=== PATIENT | female | born 1995 | race Caucasian/White ===

== ENCOUNTER → 2017-02-21 | Outpatient (CLI) | payer BC, MEDICAID ==
--- NOTE | 2017-02-21 11:00 | Diagnostic Imaging Report ---
First trimester OB ultrasound. INDICATION: Dating. FINDINGS: There is a normal-appearing single intrauterine . An embryo is seen with cardiac activity at 161 beats per minute. The crown-rump length is at 11 weeks and 5 days. DIMAS is 09/07/17. The ovaries are from obscured by bowel gas. IMPRESSION: Live single intrauterine . Dictated by: Dictated on workstation # [id number]
== END ==
LOC: RAD 10:12
PROVIDERS: ATTEND Family Medicine
DX: Z34.01 Encounter for supervision of normal first pregnancy, first trimester (principal); Z3A.11 11 weeks gestation of pregnancy
CPT/HCPCS: 76801

== ENCOUNTER → 2017-04-30 | Outpatient (CLI) | payer BC, MEDICAID ==
--- NOTE | 2017-04-30 14:10 | Diagnostic Imaging Report ---
INDICATION: survey. TECHNIQUE: Multiple real-time grayscale images were obtained over the gravid uterus. COMPARISON: 02/21/2017. FINDINGS: The heart rate is 146 BPM. The placenta is anterior with no placenta previa. The lateral ventricles are not enlarged. The stomach appears unremarkable. The bladder is seen with two umbilical arteries noted, suggestive of a three-vessel cord. No hydronephrosis or cystic mass at the level of the kidneys is noted. The cord insertion is not well seen. The spine demonstrates no definitive abnormality although the lower spine is not well seen on this exam. The biometrical measurements are as follows: Biparietal 4.9 cm, age 21 weeks 1 days. Head circumference 18.3 cm, age 20 weeks 5 days. Abdominal circumference 15.3 cm, age 20 weeks 4 days. Femur length 3.4 cm, age 20 weeks 4 days. Sonographic estimate age: 20 weeks 6 days. The sonographic age compares to a gestational age of 21 weeks and 3 days based on the DIMAS of 09/07/2017. Sonographic estimated date of delivery: 09/11/17. Estimated Weight: 363 gm (+/- 53 gm). LMP percentile: 11%. heart rate: 146 beats per minute. number: 1 of 1. IMPRESSION: The cord insertion and lower aspect of the spine are not well seen due to position. Reevaluation within 2 weeks is suggested. Dictated by: Dictated on workstation # [id number]
== END ==
LOC: RAD 10:13
PROVIDERS: ATTEND Family Medicine
DX: Z34.02 Encounter for supervision of normal first pregnancy, second trimester (principal); Z36 Encounter for antenatal screening of mother
CPT/HCPCS: 76805

== ENCOUNTER → 2017-07-02 | Outpatient (CLI) | payer MEDICAID ==
[~2017-07-02] MED LIST: ACET325T38 PO; IBUP-1773 PO; PREN-142 PO
--- NOTE | 2017-07-02 13:45 | Diagnostic Imaging Report ---
INDICATION: recheck anatomy. TECHNIQUE: Multiple real-time grayscale images were obtained over the gravid uterus. COMPARISON: None this study was compared to prior exams of 02/21/17 and 04/30/17. FINDINGS: The previous exam of 04/30/17 noted a single live fetus. There were no abnormalities identified but the cord insertion and spine were not well visualized due to position. On this study the fetus is again identified. The fetus is in transverse presentation with head on maternal left. heart motion was noted at a rate of 140 bpm and was recorded. There were no abnormalities visualized. In particular the spine and cord insertion appear to be within normal limits. The placenta is anterior and there is no previa. The amniotic fluid index is 11.3 (normal 8-22 CM). growth parameters were not obtained for this study. IMPRESSION: 1. There is a single live fetus approximately 30 weeks 3 days gestation plus or minus one week. EDC remains September 07, 2017. 2. There were no abnormalities identified. In particular the spine and cord insertion appear to be within normal limits. 3. The growth parameters were not obtained for this study. Biometrical measurements are as follows: Biparietal cm, age weeks days. Head circumference cm, age weeks days. Abdominal circumference cm, age weeks days. Femur length cm, age weeks days. Sonographic estimate age: weeks days. Sonographic estimated date of delivery: . Estimated Weight: gm (+/- gm). LMP percentile: %. heart rate: beats per minute. number: of . IMPRESSION: Dictated by: Dictated on workstation # [id number]
== END ==
LOC: RAD 09:58
PROVIDERS: ATTEND Family Medicine
DX: Z36 Encounter for antenatal screening of mother (principal); Z3A.28 28 weeks gestation of pregnancy
CPT/HCPCS: 76816

== ENCOUNTER 2017-08-28 19:33 | Inpatient (IN) | payer MEDICAID ==
[~2017-08-28] VITALS: Ht 175.3 cm; Wt 98.9 kg
--- OUTSIDE RECORDS SUMMARY | 2017-08-28 19:37 | XMS REPORT | Clinical Summary ---
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 If you do not see the information that you expected, contact Release of Information in the Health Information Management department at [phone] for further assistance in locating additional records.[facility] Allergies Not on File Current Medications Not on file Active Problems Not on file Social History Tobacco Use Types Packs/Day Years Used Date Never Assessed Sex Assigned at Date Recorded Not on file Last Filed Vital Signs Not on file Plan of Treatment Health Maintenance Due Date Last Done Comments PHYSICAL (COMPREHENSIVE) 2004 EXAM HPV VACCINES (1 of 3 - 2008 Female 3 Dose Series) PERTUSSIS VACCINE 2008 TETANUS VACCINE 2014 INFLUENZA VACCINE 08/17/2017 Results Not on filefrom Last 3 Months
--- OUTSIDE RECORDS SUMMARY | 2017-08-28 19:38 | XMS REPORT | Continuity of Care Document ---
Author Author [facility] Organization [facility] Address Unknown Phone Unavailable Allergies Active Description Code Type Severity Reaction Onset Reported/Identified Relationship to Patient Clinical Status Yes Penicillins Drug Allergy N/A N/A 10/19/2013 Medications Problems Date Dx Coded Attending Type Code Diagnosis Diagnosed By 09/12/2008 MARIA M GRIDER DO 300.02 GENERALIZED ANXIETY DISORDER 09/12/2008 MARIA M GRIDER DO K 300.02 GENERALIZED ANXIETY DISORDER 09/12/2008 WILLY PATTERSON PSYD 300.02 GENERALIZED ANXIETY DISORDER 09/12/2008 MARIA M GRIDER DO K 300.02 GENERALIZED ANXIETY DISORDER 09/12/2008 WILLY PATTERSON PSYD 300.02 GENERALIZED ANXIETY DISORDER 09/12/2008 RAJOTTE MARBLE HELPER, AKIL A 300.02 GENERALIZED ANXIETY DISORDER 09/12/2008 RAJOTTE MARBLE HELPER, AKIL A 300.02 GENERALIZED ANXIETY DISORDER 09/12/2008 RAJOTTE MARBLE HELPER, AKIL A 300.02 GENERALIZED ANXIETY DISORDER 09/12/2008 RAJOTTE MARBLE HELPER, AKIL A 300.02 GENERALIZED ANXIETY DISORDER 09/12/2008 RAJOTTE MARBLE HELPER, AKIL A 300.02 GENERALIZED ANXIETY DISORDER 09/12/2008 MARIA M GRIDER DO K 300.02 GENERALIZED ANXIETY DISORDER 12/13/2008 MARIA M GRIDER DO K 300.00 AN ANXIETY UNSPEC 12/13/2008 MARIA M GRIDER DO K 300.4 MO DYSTHYMIC DIS 12/13/2008 THU GRIDER DOA K 300.00 AN ANXIETY UNSPEC 12/13/2008 MARIA M GRIDER DO K 300.4 MO DYSTHYMIC DIS 12/13/2008 WILLY PATTERSON PSYD 300.00 AN ANXIETY UNSPEC 12/13/2008 WILLY PATTERSON PSYD 300.4 MO DYSTHYMIC DIS 12/13/2008 MARIA M GRIDER DO K 300.00 AN ANXIETY UNSPEC 12/13/2008 MARIA M GRIDER DO K 300.4 MO DYSTHYMIC DIS 12/13/2008 WILLY PATTERSON PSYD L 300.00 AN ANXIETY UNSPEC 12/13/2008 WILLY PATTERSON PSYD L 300.4 MO DYSTHYMIC DIS 12/13/2008 RAJOTTE MARBLE HELPER, AKIL A 300.00 AN ANXIETY UNSPEC 12/13/2008 RAJOTTE MARBLE HELPER, AKIL A 300.4 MO DYSTHYMIC DIS 12/13/2008 RAJOTTE MARBLE HELPER, AKIL A 300.00 AN ANXIETY UNSPEC 12/13/2008 RAJOTTE MARBLE HELPER, AKIL A 300.4 MO DYSTHYMIC DIS 12/13/2008 RAJOTTE MARBLE HELPER, AKIL A 300.00 AN ANXIETY UNSPEC 12/13/2008 RAJOTTE MARBLE HELPER, AKIL A 300.4 MO DYSTHYMIC DIS 12/13/2008 RAJOTTE MARBLE HELPER, AKIL A 300.00 AN ANXIETY UNSPEC 12/13/2008 RAJOTTE MARBLE HELPER, AKIL A 300.4 MO DYSTHYMIC DIS 12/13/2008 RAJOTTE MARBLE HELPER, AKIL A 300.00 AN ANXIETY UNSPEC 12/13/2008 RAJOTTE MARBLE HELPER, AKIL A 300.4 MO DYSTHYMIC DIS 12/13/2008 THU GRIDER DOA K 300.00 AN ANXIETY UNSPEC 12/13/2008 GRIDER DO MARIA M K 300.4 MO DYSTHYMIC DIS 09/11/2009 THU GRIDER DOA K V06.5 DT, TETANUS-DIPHTHERIA [Td] ,TDAP 09/11/2009 CHEO DAWKINS MARIA M K V06.5 DT, TETANUS-DIPHTHERIA [Td] ,TDAP 09/11/2009 WILLY PATTERSON PSYD L V06.5 DT, TETANUS-DIPHTHERIA [Td] ,TDAP 09/11/2009 MARIA M GRIDER DO K V06.5 DT, TETANUS-DIPHTHERIA [Td] ,TDAP 09/11/2009 WILLY PATTERSON PSYD L V06.5 DT, TETANUS-DIPHTHERIA [Td] ,TDAP 09/11/2009 DONNELLOTTE MARBLE HELPER, AKIL A V06.5 DT, TETANUS-DIPHTHERIA [Td] ,TDAP 09/11/2009 RAJOTTE MARBLE HELPER, AKIL A V06.5 DT, TETANUS-DIPHTHERIA [Td] ,TDAP 09/11/2009 RAJOTTE MARBLE HELPER, AKIL A V06.5 DT, TETANUS-DIPHTHERIA [Td] ,TDAP 09/11/2009 RAJOTTE MARBLE HELPER, AKIL A V06.5 DT, TETANUS-DIPHTHERIA [Td] ,TDAP 09/11/2009 RAJOTTE MARBLE HELPER, AKIL A V06.5 DT, TETANUS-DIPHTHERIA [Td] ,TDAP 09/11/2009 THU GRIDER DOA K V06.5 DT, TETANUS-DIPHTHERIA [Td] ,TDAP 11/03/2009 THU GRIDER DOA K 294.9 OR COG DIS NOS 11/03/2009 THU GRIDER DOA K 294.9 OR COG DIS NOS 11/03/2009 WILLY PATTERSON PSYD 294.9 OR COG DIS NOS 11/03/2009 THU GRIDER DOA K 294.9 OR COG DIS NOS 11/03/2009 WILLY PATTERSON PSYD L 294.9 OR COG DIS NOS 11/03/2009 RAJOTTE MARBLE HELPER, AKIL A 294.9 OR COG DIS NOS 11/03/2009 RAJOTTE MARBLE HELPER, AKIL A 294.9 OR COG DIS NOS 11/03/2009 RAJOTTE MARBLE HELPER, AKIL A 294.9 OR COG DIS NOS 11/03/2009 RAJOTTE MARBLE HELPER, AKIL A 294.9 OR COG DIS NOS 11/03/2009 RAJOTTE MARBLE HELPER, AKIL A 294.9 OR COG DIS NOS 11/03/2009 THU GRIDER DOA K 294.9 OR COG DIS NOS 01/12/2010 THU GRIDER DOA K 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 01/12/2010 THU GRIDER DOA K 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 01/12/2010 WILLY PATTERSON PSYD L 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 01/12/2010 THU GRIDER DOA K 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 01/12/2010 WILLY PATTERSON PSYD 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 01/12/2010 RAJOTTE MARBLE HELPER, AKIL A 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 01/12/2010 RAJOTTE MARBLE HELPER, AKIL A 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 01/12/2010 RAJOTTE MARBLE HELPER, AKIL A 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 01/12/2010 RAJOTTE MARBLE HELPER, AKIL A 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 01/12/2010 RAJOTTE MARBLE HELPER, AKIL A 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 01/12/2010 GRIDER DO, MARIA M K 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 01/19/2010 GRIDER DO, MARIA M K 311 MO DEPRESS NOS 01/19/2010 GRIDER DO, MARIA M K 311 MO DEPRESS NOS 01/19/2010 YESENIA MCCAIN, RITO L 311 MO DEPRESS NOS 01/19/2010 GRIDER DO, MARIA M K 311 MO DEPRESS NOS 01/19/2010 YESENIA MCCAIN, RITO L 311 MO DEPRESS NOS 01/19/2010 RAJOTTE MARBLE HELPER, AKIL A 311 MO DEPRESS NOS 01/19/2010 RAJOTTE MARBLE HELPER, AKIL A 311 MO DEPRESS NOS 01/19/2010 RAJOTTE MARBLE HELPER, AKIL A 311 MO DEPRESS NOS 01/19/2010 RAJOTTE MARBLE HELPER, AKIL A 311 MO DEPRESS NOS 01/19/2010 RAJOTTE MARBLE HELPER, AKIL A 311 MO DEPRESS NOS 01/19/2010 GRIDER DO, MARIA M K 311 MO DEPRESS NOS 03/01/2010 GRIDER DO, MARIA M K 300.21 AN PANIC DIS W AGORA 03/01/2010 GRIDER DO, MARIA M K 300.21 AN PANIC DIS W AGORA 03/01/2010 WILLY PATTERSON PSYD 300.21 AN PANIC DIS W AGORA 03/01/2010 GRIDER DO, MARIA M K 300.21 AN PANIC DIS W AGORA 03/01/2010 WILLY PATTERSON PSYD L 300.21 AN PANIC DIS W AGORA 03/01/2010 RAJOTTE MARBLE HELPER, AKIL A 300.21 AN PANIC DIS W AGORA 03/01/2010 RAJOTTE MARBLE HELPER, AKIL A 300.21 AN PANIC DIS W AGORA 03/01/2010 RAJOTTE MARBLE HELPER, AKIL A 300.21 AN PANIC DIS W AGORA 03/01/2010 RAJOTTE MARBLE HELPER, AKIL A 300.21 AN PANIC DIS W AGORA 03/01/2010 RAJOTTE MARBLE HELPER, AKIL A 300.21 AN PANIC DIS W AGORA 03/01/2010 GRIDER DO, MARIA M K 300.21 AN PANIC DIS W AGORA 10/19/2013 GRIDER DO, MARIA M K 299.00 AUTISTIC DISORDER CURRENT OR ACTIVE STATE 10/19/2013 GRIDER DO, MARIA M K 380.4 IMPACTED CERUMEN 10/19/2013 GRIDER DO, MARIA M K 477.9 ALLERGIC RHINITIS CAUSE UNSPECIFIED 10/19/2013 GRIDER DO, MARIA M K 626.9 UNSPECIFIED DISORDERS OF MENSTRUATION AND OTHER ABNORMAL BLEEDING FROM FEMALE GENITAL TRACT 10/19/2013 GRIDER DO, MARAI M K 704.1 HIRSUTISM 10/19/2013 GRIDER DO, MARIA M K 729.5 PAIN IN LIMB 10/19/2013 GRIDER DO, MARIA M K V15.09 PERSONAL HISTORY OF OTHER ALLERGY OTHER THAN TO MEDICINAL AGENTS 10/19/2013 GRIDER DO, MARIA M K 299.00 AUTISTIC DISORDER CURRENT OR ACTIVE STATE 10/19/2013 GRIDER DO, MARIA M K 380.4 IMPACTED CERUMEN 10/19/2013 GRIDER DO, MARIA M K 477.9 ALLERGIC RHINITIS CAUSE UNSPECIFIED 10/19/2013 GRIDER DO, MARIA M K 626.9 UNSPECIFIED DISORDERS OF MENSTRUATION AND OTHER ABNORMAL BLEEDING FROM FEMALE GENITAL TRACT 10/19/2013 GRIDER DO MARIA M K 704.1 HIRSUTISM 10/19/2013 GRIDER DO, MARIA M K 729.5 PAIN IN LIMB 10/19/2013 GRIDER DO, MARIA M K V15.09 PERSONAL HISTORY OF OTHER ALLERGY OTHER THAN TO MEDICINAL AGENTS 10/19/2013 WILLY PATTESRON PSYD L 299.00 AUTISTIC DISORDER CURRENT OR ACTIVE STATE 10/19/2013 WILLY PATTERSON PSYD L 380.4 IMPACTED CERUMEN 10/19/2013 WILLY PATTERSON PSYD L 477.9 ALLERGIC RHINITIS CAUSE UNSPECIFIED 10/19/2013 WILLY PATTERSON PSYD L 626.9 UNSPECIFIED DISORDERS OF MENSTRUATION AND OTHER ABNORMAL BLEEDING FROM FEMALE GENITAL TRACT 10/19/2013 WILLY PATTERSON PSYD L 704.1 HIRSUTISM 10/19/2013 WILLY PATTERSON PSYD L 729.5 PAIN IN LIMB 10/19/2013 WILLY PATTERSON PSYD ANN L V15.09 PERSONAL HISTORY OF OTHER ALLERGY OTHER THAN TO MEDICINAL AGENTS 10/19/2013 GRIDER DO MARIA M K 299.00 AUTISTIC DISORDER CURRENT OR ACTIVE STATE 10/19/2013 GRIDER DO MARIA M K 380.4 IMPACTED CERUMEN 10/19/2013 GRIDER DO, MARIA M K 477.9 ALLERGIC RHINITIS CAUSE UNSPECIFIED 10/19/2013 GRIDER DO, MARIA M K 626.9 UNSPECIFIED DISORDERS OF MENSTRUATION AND OTHER ABNORMAL BLEEDING FROM FEMALE GENITAL TRACT 10/19/2013 GRIDER DO, MARIA M K 704.1 HIRSUTISM 10/19/2013 GRIDER DO, MARIA M K 729.5 PAIN IN LIMB 10/19/2013 CHEO DAWKINS MARIA M K V15.09 PERSONAL HISTORY OF OTHER ALLERGY OTHER THAN TO MEDICINAL AGENTS 10/19/2013 WILLY PATTERSON PSYD L 299.00 AUTISTIC DISORDER CURRENT OR ACTIVE STATE 10/19/2013 WILLY PATTERSON PSYD L 380.4 IMPACTED CERUMEN 10/19/2013 WILLY PATTERSON PSYD L 477.9 ALLERGIC RHINITIS CAUSE UNSPECIFIED 10/19/2013 WILLY PATTERSON PSYD L 626.9 UNSPECIFIED DISORDERS OF MENSTRUATION AND OTHER ABNORMAL BLEEDING FROM FEMALE GENITAL TRACT 10/19/2013 WILLY PATTERSON PSYD L 704.1 HIRSUTISM 10/19/2013 WILLY PATTERSON PSYD L 729.5 PAIN IN LIMB 10/19/2013 WILLY PATTERSON PSYD ANN L V15.09 PERSONAL HISTORY OF OTHER ALLERGY OTHER THAN TO MEDICINAL AGENTS 10/19/2013 ANGELITO PARRY, AKIL A 299.00 AUTISTIC DISORDER CURRENT OR ACTIVE STATE 10/19/2013 IVANE MARBLE HELPER, AKIL A 380.4 IMPACTED CERUMEN 10/19/2013 DMITRY EATON APRNYL A 477.9 ALLERGIC RHINITIS CAUSE UNSPECIFIED 10/19/2013 ANGELITO MARBLE HELPER, AKIL A 626.9 UNSPECIFIED DISORDERS OF MENSTRUATION AND OTHER ABNORMAL BLEEDING FROM FEMALE GENITAL TRACT 10/19/2013 RAJLUIS FE MARBLE HELPER, AKIL A 704.1 HIRSUTISM 10/19/2013 RAJLUIS FE MARBLE HELPER, AKIL A 729.5 PAIN IN LIMB 10/19/2013 IVANE MARBLE HELPER AKIL A V15.09 PERSONAL HISTORY OF OTHER ALLERGY OTHER THAN TO MEDICINAL AGENTS 10/19/2013 RAJOTTE MARBLE HELPER, AKIL A 299.00 AUTISTIC DISORDER CURRENT OR ACTIVE STATE 10/19/2013 RAJOTTE MARBLE HELPER, AKIL A 380.4 IMPACTED CERUMEN 10/19/2013 RAJOTTE MARBLE HELPER, AKIL A 477.9 ALLERGIC RHINITIS CAUSE UNSPECIFIED 10/19/2013 RAJOTTE MARBLE HELPER, AKIL A 626.9 UNSPECIFIED DISORDERS OF MENSTRUATION AND OTHER ABNORMAL BLEEDING FROM FEMALE GENITAL TRACT 10/19/2013 RAJOTTE MARBLE HELPER, AKIL A 704.1 HIRSUTISM 10/19/2013 RAJOTTE MARBLE HELPER, AKIL A 729.5 PAIN IN LIMB 10/19/2013 RAJOTTE MARBLE HELPER, AKIL A V15.09 PERSONAL HISTORY OF OTHER ALLERGY OTHER THAN TO MEDICINAL AGENTS 10/19/2013 RAJOTTE MARBLE HELPER, AKIL A 299.00 AUTISTIC DISORDER CURRENT OR ACTIVE STATE 10/19/2013 RAJOTTE MARBLE HELPER, AKIL A 380.4 IMPACTED CERUMEN 10/19/2013 RAJOTTE MARBLE HELPER, AKIL A 477.9 ALLERGIC RHINITIS CAUSE UNSPECIFIED 10/19/2013 RAJOTTE MARBLE HELPER, AKIL A 626.9 UNSPECIFIED DISORDERS OF MENSTRUATION AND OTHER ABNORMAL BLEEDING FROM FEMALE GENITAL TRACT 10/19/2013 RAJOTTE MARBLE HELPER, AKIL A 704.1 HIRSUTISM 10/19/2013 RAJOTTE MARBLE HELPER, AKIL A 729.5 PAIN IN LIMB 10/19/2013 RAJOTTE MARBLE HELPER, AKIL A V15.09 PERSONAL HISTORY OF OTHER ALLERGY OTHER THAN TO MEDICINAL AGENTS 10/19/2013 RAJOTTE MARBLE HELPER, AKIL A 299.00 AUTISTIC DISORDER CURRENT OR ACTIVE STATE 10/19/2013 RAJOTTE MARBLE HELPER, AKIL A 380.4 IMPACTED CERUMEN 10/19/2013 RAJOTTE MARBLE HELPER, AKIL A 477.9 ALLERGIC RHINITIS CAUSE UNSPECIFIED 10/19/2013 RAJOTTE MARBLE HELPER, AKIL A 626.9 UNSPECIFIED DISORDERS OF MENSTRUATION AND OTHER ABNORMAL BLEEDING FROM FEMALE GENITAL TRACT 10/19/2013 RAJOTTE MARBLE HELPER, AKIL A 704.1 HIRSUTISM 10/19/2013 RAJOTTE MARBLE HELPER, AKIL A 729.5 PAIN IN LIMB 10/19/2013 RAJOTTE MARBLE HELPER, AKIL A V15.09 PERSONAL HISTORY OF OTHER ALLERGY OTHER THAN TO MEDICINAL AGENTS 10/19/2013 RAJOTTE MARBLE HELPER, AKIL A 299.00 AUTISTIC DISORDER CURRENT OR ACTIVE STATE 10/19/2013 RAJOTTE MARBLE HELPER, AKIL A 380.4 IMPACTED CERUMEN 10/19/2013 RAJOTTE MARBLE HELPER, AKIL A 477.9 ALLERGIC RHINITIS CAUSE UNSPECIFIED 10/19/2013 RAJOTTE MARBLE HELPER, AKIL A 626.9 UNSPECIFIED DISORDERS OF MENSTRUATION AND OTHER ABNORMAL BLEEDING FROM FEMALE GENITAL TRACT 10/19/2013 RAJOTTE MARBLE HELPER, AKIL A 704.1 HIRSUTISM 10/19/2013 RAJOTTE MARBLE HELPER, AKIL A 729.5 PAIN IN LIMB 10/19/2013 RAJOTTE MARBLE HELPER, AKIL A V15.09 PERSONAL HISTORY OF OTHER ALLERGY OTHER THAN TO MEDICINAL AGENTS 10/19/2013 GRIDER DO, MARIA M K 299.00 AUTISTIC DISORDER CURRENT OR ACTIVE STATE 10/19/2013 GRIDER DO, MARIA M K 380.4 IMPACTED CERUMEN 10/19/2013 GRIDER DO, MARIA M K 477.9 ALLERGIC RHINITIS CAUSE UNSPECIFIED 10/19/2013 GRIDER DO, MARIA M K 626.9 UNSPECIFIED DISORDERS OF MENSTRUATION AND OTHER ABNORMAL BLEEDING FROM FEMALE GENITAL TRACT 10/19/2013 GRIDER DO, MARIA M K 704.1 HIRSUTISM 10/19/2013 GRIDER DO, MARIA M K 729.5 PAIN IN LIMB 10/19/2013 GRIDER DO, MARIA M K V15.09 PERSONAL HISTORY OF OTHER ALLERGY OTHER THAN TO MEDICINAL AGENTS 10/26/2013 NANCY VILLELA MD Ot V57.1 PHYSICAL THERAPY NEC 10/26/2013 NANCY VILLELA MD Ot V58.49 OTHER SPECIFIED AFTERCARE FOLLOWING SURG 11/23/2013 GRIDER DO MARIA M K 388.70 OTALGIA UNSPECIFIED 11/23/2013 WILLY PATTERSON PSYD 388.70 OTALGIA UNSPECIFIED 11/23/2013 GRIDER DO MARIA M K 388.70 OTALGIA UNSPECIFIED 11/23/2013 WILLY PATTERSON PSYD 388.70 OTALGIA UNSPECIFIED 11/23/2013 RAJOTTE MARBLE HELPER, AKIL A 388.70 OTALGIA UNSPECIFIED 11/23/2013 RAJOTTE MARBLE HELPER, AKIL A 388.70 OTALGIA UNSPECIFIED 11/23/2013 RAJOTTE MARBLE HELPER, AKIL A 388.70 OTALGIA UNSPECIFIED 11/23/2013 RAJOTTE MARBLE HELPER, AKIL A 388.70 OTALGIA UNSPECIFIED 11/23/2013 RAJOTTE MARBLE HELPER, AKIL A 388.70 OTALGIA UNSPECIFIED 11/23/2013 GRIDER DO, MARIA M K 388.70 OTALGIA UNSPECIFIED 02/04/2014 WILLY PATTERSON PSYD 317 MENTAL RETARDATION-MILD 02/04/2014 RAJOTTE MARBLE HELPER, AKIL A 317 MENTAL RETARDATION-MILD 02/04/2014 RAJOTTE MARBLE HELPER, AKIL A 317 MENTAL RETARDATION-MILD 02/04/2014 RAJOTTE MARBLE HELPER, AKIL A 317 MENTAL RETARDATION-MILD 02/04/2014 RAJOTTE MARBLE HELPER, AKIL A 317 MENTAL RETARDATION-MILD 02/04/2014 RAJOTTE MARBLE HELPER, AKIL A 317 MENTAL RETARDATION-MILD 02/04/2014 GRIDER DOTHUA K 317 MENTAL RETARDATION-MILD 02/22/2014 RAJOTTE MARBLE HELPER, AKIL A 462 PHARYNGITIS ACUTE 02/22/2014 RAJOTTE MARBLE HELPER, AKIL A 785.6 LYMPH NODES ENLARGEMENT 02/22/2014 RAJOTTE MARBLE HELPER, AKIL A 462 PHARYNGITIS ACUTE 02/22/2014 RAJOTTE MARBLE HELPER, AKIL A 785.6 LYMPH NODES ENLARGEMENT 02/22/2014 RAJOTTE MARBLE HELPER, AKIL A 462 PHARYNGITIS ACUTE 02/22/2014 RAJOTTE MARBLE HELPER, AKIL A 785.6 LYMPH NODES ENLARGEMENT 02/22/2014 RAJOTTE MARBLE HELPER, AKIL A 462 PHARYNGITIS ACUTE 02/22/2014 RAJOTTE MARBLE HELPER, AKIL A 785.6 LYMPH NODES ENLARGEMENT 02/22/2014 RAJOTTE MARBLE HELPER, AKIL A 462 PHARYNGITIS ACUTE 02/22/2014 RAJOTTE MARBLE HELPER, AKIL A 785.6 LYMPH NODES ENLARGEMENT 02/22/2014 CHEO DOMARIA M K 462 PHARYNGITIS ACUTE 02/22/2014 GRIDER DO MARIA M K 785.6 LYMPH NODES ENLARGEMENT 09/12/2014 RAJOTTE MARBLE HELPER, AKIL A 787.02 NAUSEA ALONE 09/12/2014 RAJOTTE MARBLE HELPER, AKIL A 787.02 NAUSEA ALONE 09/12/2014 RAJOTTE MARBLE HELPER, AKIL A 787.02 NAUSEA ALONE 09/12/2014 GRIDER THU DAWKINSA K 787.02 NAUSEA ALONE 09/28/2014 RAJOTTE MARBLE HELPER, AKIL A 008.8 GASTROENTERITIS, VIRAL 09/28/2014 ANGELITO PARRY, AKIL A 079.99 VIRAL SYNDROME 09/28/2014 ANGELITO PARRY, AKIL A 008.8 GASTROENTERITIS, VIRAL 09/28/2014 ANGELITO PARRY, AKIL A 079.99 VIRAL SYNDROME 09/28/2014 GRIDER , MARIA M K 008.8 GASTROENTERITIS, VIRAL 09/28/2014 GRIDER , MARIA M K 079.99 VIRAL SYNDROME 10/24/2014 BILLIE PA, SHER M Ot 626.9 10/24/2014 BILLIE PA, SHER M Ot 626.9 10/24/2014 BILLIE PA, SHER M Ot 704.1 11/01/2014 ANGELITO PARRY AKIL A 346.90 MIGRAINE HEADACHE 11/01/2014 THU GIRDER DOA K 346.90 MIGRAINE HEADACHE 05/14/2015 BILLIE RAE, SHER M Ot 626.9 05/14/2015 BILLIE PA, SHER M Ot 626.9 05/14/2015 BILLIE RAE, SHER M Ot 704.1 12/27/2015 BILLIE PA, SHER M Ot 626.9 12/27/2015 BILLIE PA, SHER M Ot 626.9 12/27/2015 BILLIE PA, SHER M Ot 704.1 02/23/2016 BILLIE PA, SHER M Ot 626.9 02/23/2016 BILLIE PA, SHER M Ot 626.9 02/23/2016 BILLIE PA, SHER M Ot 704.1 08/07/2016 BILLIE PA, SHER M Ot 626.9 MENSTRUAL DISORDER NOS 08/07/2016 WISE PA, HSER M Ot 626.9 MENSTRUAL DISORDER NOS 08/07/2016 BILLIE PA, SHER M Ot 704.1 HIRSUTISM 09/23/2016 BILLIE PA, SHER M Ot 626.9 MENSTRUAL DISORDER NOS 09/23/2016 BILLIE PA, SHER M Ot 626.9 MENSTRUAL DISORDER NOS 09/23/2016 BILLIE PA, SHER M Ot 704.1 HIRSUTISM 10/16/2016 BILLIE PA, SHER M Ot 626.9 MENSTRUAL DISORDER NOS 10/16/2016 BILLIE PA, SHER M Ot 626.9 MENSTRUAL DISORDER NOS 10/16/2016 SHER NORMAN M Ot 704.1 HIRSUTISM 02/21/2017 SHER NORMAN M Ot 626.9 MENSTRUAL DISORDER NOS 02/21/2017 BILLIE RAE, SHER M Ot 626.9 MENSTRUAL DISORDER NOS 02/21/2017 SHER NORMAN M Ot 704.1 HIRSUTISM 02/24/2017 MEGHA LEGGETT MD Ot Z34.01 ENCNTR FOR SUPRVSN OF NORMAL FIRST PREG, 02/24/2017 MEGHA LEGGETT MD Ot Z3A.11 11 WEEKS GESTATION OF 03/07/2017 MEGHA LEGGETT MD Ot Z34.01 ENCNTR FOR SUPRVSN OF NORMAL FIRST PREG, 03/07/2017 MEGHA LEGGETT MD Ot Z3A.11 11 WEEKS GESTATION OF 04/25/2017 SHER NORMAN M Ot 626.9 MENSTRUAL DISORDER NOS 04/25/2017 SHER NORMAN M Ot 626.9 MENSTRUAL DISORDER NOS 04/25/2017 SHER NORMAN M Ot 704.1 HIRSUTISM 04/25/2017 MEGHA LEGGETT MD Ot Z34.01 ENCNTR FOR SUPRVSN OF NORMAL FIRST PREG, 04/25/2017 MEGHA LEGGETT MD Ot Z3A.11 11 WEEKS GESTATION OF 05/01/2017 MEGHA LEGGETT MD Ot Z34.02 ENCNTR FOR SUPRVSN OF NORMAL FIRST PREG, 05/01/2017 MEGHA LEGGETT MD Ot Z36 ENCOUNTER FOR SCREENING OF MOT 05/07/2017 MEGHA LEGGETT MD Ot Z34.02 ENCNTR FOR SUPRVSN OF NORMAL FIRST PREG, 05/07/2017 MEGHA LEGGETT MD Ot Z36 ENCOUNTER FOR SCREENING OF MOT 05/07/2017 MEGHA LEGGETT MD Ot Z34.02 ENCNTR FOR SUPRVSN OF NORMAL FIRST PREG, 05/07/2017 MEGHA LEGGETT MD Ot Z36 ENCOUNTER FOR SCREENING OF MOT 05/07/2017 MEGHA LEGGETT MD Ot Z34.02 ENCNTR FOR SUPRVSN OF NORMAL FIRST PREG, 05/07/2017 MEGHA LEGGETT MD Ot Z36 ENCOUNTER FOR SCREENING OF MOT 05/09/2017 MEGHA LEGGETT MD Ot Z34.01 ENCNTR FOR SUPRVSN OF NORMAL FIRST PREG, 05/09/2017 MEGHA LEGGETT MD Ot Z3A.11 11 WEEKS GESTATION OF 05/13/2017 MEGHA LEGGETT MD Ot Z34.02 ENCNTR FOR SUPRVSN OF NORMAL FIRST PREG, 05/13/2017 MEGHA LEGGETT MD Ot Z36 ENCOUNTER FOR SCREENING OF MOT 07/30/2017 CHRISSIE HERNANDEZ MD, Ot Z36 ENCOUNTER FOR SCREENING OF MOT 07/30/2017 CHRISSIE HERNANDEZ MD, Ot Z3A.28 28 WEEKS GESTATION OF Procedures Code [place] [address] XRAY FOREARM RIGHT 2 VIEWS 10/19/2013 39344 XRAY WRIST RIGHT 2 VIEWS 10/19/2013 56975 US PELVIC COMPL (REFLEX CPT- 67310) 10/19/2013 ORTHOPEDI BK RAMIRES 10/19/2013 97497 PSYCH DIAGNOSTIC EVALUATION 12/20/2013 Orthopedi Cm, Orthopedics 12/27/2013 11698 PSYTX PT&/FAMILY 45 MINUTES 02/04/2014 [id number] STREP A (IN-HOUSE) 02/22/2014 38019 MONO TEST (IN-HOUSE) 02/22/2014 27525 STREP A (IN-HOUSE) 07/15/2014 80711 STREP A (IN-HOUSE) 09/12/2014 J1885 TORADOL PER 15 MG, INJ KETOROLAC TROMETHAMINE 11/01/2014 65006 THERAPUTIC INJ SQ/IM 11/01/2014 Results Encounters ACCT No. Visit Date/Time Discharge Status Pt. Type Provider Facility Loc./Unit Complaint [id number] 07/02/2017 09:58:00 2016 23:59:59 CLS Outpatient CHRISSIE HERNANDEZ MD [facility] RAD Z3A.28 28 WEEKS GESTATION OF PREG [id number] 04/30/2017 10:13:00 2016 23:59:59 CLS Outpatient MEGHA LEGGETT MD [facility] RAD Z34.02 CARE [id number] 02/21/2017 10:12:00 2016 23:59:59 CLS Outpatient MEGHA LEGGETT MD [facility] RAD DATING [id number] 10/01/2016 09:33:00 2015 23:59:59 CLS Outpatient FLO HALL [facility] QUICK WRIST/KNEE PAIN [id number] 11/18/2013 09:40:00 2013 23:59:59 CLS Outpatient SHER NORMAN [facility] RAD ABNORMAL MENSES [id number] 11/01/2013 13:36:00 2012 23:59:59 CLS Outpatient SHER NORMAN [facility] RAD ABNORMAL MENSES [id number] 10/12/2013 15:41:00 2012 09:05:00 DIS Outpatient NANCY VILLELA MD [facility] REHAB R POST OP PATELLA REALIGNMENT [id number] 11/01/2014 11:02:00 11/01/2014 23: 59:59 CLS Outpatient MARIA M GRIDER DO [id number] 11/01/2014 10:35:00 11/01/2014 23: 59:59 CLS Outpatient AKIL EATON APRN [id number] 09/28/2014 08:35:00 09/28/2014 23: 59:59 CLS Outpatient AKIL EATON APRN [id number] 09/12/2014 11:07:00 09/12/2014 23: 59:59 CLS Outpatient AKIL EATON APRN [id number] 07/15/2014 10:36:00 07/15/2014 23: 59:59 CLS Outpatient AKIL EATON APRN [id number] 02/22/2014 14:48:00 02/22/2014 23: 59:59 CLS Outpatient AKIL EATON APRN [id number] 02/04/2014 15:54:00 02/04/2014 23: 59:59 CLS Outpatient WILLY PATTERSON PSYD [id number] 12/23/2013 16:04:00 12/23/2013 23: 59:59 CLS Outpatient MARIA M GRIDER DO [id number] 12/16/2013 07:58:00 12/16/2013 23: 59:59 CLS Outpatient WILLY PATTERSON PSYD [id number] 11/23/2013 09:51:00 11/23/2013 23: 59:59 CLS Outpatient MARIA M GRIDER DO [id number] 10/19/2013 11:12:00 10/19/2013 23: 59:59 CLS Outpatient MARIA M GRIDER DO
[2017-08-28] MEDS ORDERED: BUTORPHANOL INJ 2 MG/ML (STADOL) VIAL IV PRN (19:45)
[2017-08-28] MEDS ORDERED: ZOLPIDEM 5 MG (AMBIEN) TAB PO PRN (19:45)
[2017-08-28] MEDS ORDERED: MINERAL OIL CONCENTRATE 99.9% 15 ML UDC TOP PRN (19:45)
[2017-08-28] MEDS ORDERED: DINOPROSTONE 10 MG (CERVIDIL) INSERT PV ONE (19:45)
[2017-08-28 19:52] VITALS: BP 157/96
[2017-08-28] MEDS: D5 LR IV SOLUTION 1,000 ML IV SCH (20:05)
[2017-08-28 20:11] VITALS: BP 139/90
[2017-08-28] MEDS ORDERED: PREN-142 PO (20:14)
[2017-08-28] MEDS ORDERED: ACET325T38 PO (20:15)
[2017-08-28 20:31] LABS: BASOPHILS % (AUTO) 0 % (0-10); EOSINOPHILS # (AUTO) 0.1 10^3/uL (0.0-0.3); EOSINOPHILS % (AUTO) 1 % (0-10); LYMPHOCYTES # (AUTO) 1.9 X 10^3 (1.0-4.0); LYMPHOCYTES % (AUTO) 23 % (12-44); MEAN CORPUSCULAR HEMOGLOBIN 30 PG (25-34); MEAN CORPUSCULAR HGB CONC 34 G/DL (32-36); MEAN CORPUSCULAR VOLUME 89 FL (80-99); MEAN PLATELET VOLUME 12.3 FL (7.4-10.4); MONOCYTES # (AUTO) 0.8 X 10^3 (0.0-1.0); MONOCYTES % (AUTO) 9 % (0-12); NEUTROPHILS # (AUTO) 5.3 X 10^3 (1.8-7.8); NEUTROPHILS % (AUTO) 66 % (42-75); PLATELET COUNT 263 10^3/uL (130-400); RED BLOOD COUNT 3.83 10^6/uL (4.35-5.85); WHITE BLOOD COUNT 8.1 10^3/uL (4.3-11.0)
[2017-08-28 20:52] LABS: BILIRUBIN,URINE NEGATIVE (NEGATIVE); KETONES,URINE NEGATIVE (NEGATIVE); LEUKOCYTE ESTERASE ,URINE NEGATIVE (NEGATIVE); NITRITE,URINE NEGATIVE (NEGATIVE); PH,URINE 7 (5-9); PROTEIN,URINE 3+ (NEGATIVE); UROBILINOGEN,URINE NORMAL (NORMAL)
[2017-08-28 21:04] LABS: ALANINE AMINOTRANSFERASE 7 U/L (0-55); ANION GAP 10 MMOL/L (5-14); ASPARTATE AMINO TRANSFERASE 9 U/L (5-34); BILIRUBIN,TOTAL 0.3 MG/DL (0.1-1.0); BLOOD UREA NITROGEN 8 MG/DL (7-18); BUN/CREATININE RATIO 15; CALCIUM 8.5 MG/DL (8.5-10.1); CARBON DIOXIDE 19 MMOL/L (21-32); CHLORIDE 104 MMOL/L (98-107); CREATININE SERUM 0.54 MG/DL (0.60-1.30); GFR ESTIMATED > 60; GLUCOSE 92 MG/DL (70-105); POTASSIUM 3.8 MMOL/L (3.6-5.0); SODIUM 133 MMOL/L (135-145); TOTAL PROTEIN 6.3 GM/DL (6.4-8.2); URIC ACID 4.6 MG/DL (2.6-7.2)
[2017-08-28 21:33] LABS: WBC,URINE 0-2 /HPF
[2017-08-28] MEDS: CATHETER FLUSH 10 ML SYR IV SCH (22:23)
[2017-08-29] VITALS (68 sets, daily range): BP systolic 108–175; BP diastolic 48–121
[2017-08-29] MEDS: D5 LR IV SOLUTION 1,000 ML IV SCH ×2 (04:07→11:54)
[2017-08-29] MEDS: CATHETER FLUSH 10 ML SYR IV SCH (06:09)
[2017-08-29] MEDS ORDERED: LACTATED RINGERS 1,000 ML IV ONE (07:12)
[2017-08-29] MEDS ORDERED: SUFENTA 0.6MCG/ML BUPIVA 0.125 100 ML ONE (07:13)
--- NOTE | 2017-08-29 07:36 | History & Physical-OB ---
OB - Chief Complaint & HPI Date/Time Date of Admission: Date of Admission: Aug 28, 2017 at 19:33 Time Seen by Provider: 07:00 Chief Complaint/History OB-Reason for Admission/Chief: Induction of Labor (due to preeclampsia) Hx : 1 Hx Para: 0 Expected Date of Delivery: Sep 07, 2017 Gestational Age in Weeks: 38 Gestational Age in Days: 4 Indication for induction: other (preeclampsia) Admission Nurse Assessment Rev: Yes History of Labs GBS negative at 36 weeks. Other on August 27, 2017 patient was noted to have elevated diastolic blood pressure and 3+ protein on her urine dipstick. The urine protein creatinine was sent off to lab [facility]. and results available on September 28, 2017 revealed a ratio of 0.87. Patient was notified of the laboratory and recommendations were for admission for Cervidil during the evening of August 28, 2017. Allergies and Home Medications Allergies Coded Allergies: Penicillins (Verified Allergy, Intermediate, Swelling, 08/28/17) latex (Verified Allergy, Intermediate, RASH, 08/28/17) Home Medications Acetaminophen 325 Mg Tablet, 325 MG PO, (Reported) Vit No.124/Iron/FA 1 Each Tablet, 1 EACH PO DAILY, (Reported) OB - History Hx of Present Care: Yes Ultrasounds: Normal mid trimester US Obstetrical Complications: Pre-eclampsia Medical Complications: None Delivery History Adverse Rxn to Tranfusion: No Patient Past Medical History no chronic medical problems Social History/Family History Recent Infectious Disease Expo: No Alcohol Use: Denies Use Recreational Drug Use: No OB - Admission Exam Physical Exam Vitals: Vital Signs 08/29/17 04:10 Temp 97.0 Pulse 60 Resp 18 B/P (MAP) 136/88 HEENT: Moist Membranes Heart: Rhythm Normal Lungs: Clear Abdomen: Gravid Extremities: Normal Reflexes: Normal Cervical Dilatation: 1cm Effacement: 50% Station: -3 Membranes: Intact Heart Rate: 130's Accelerations: Accelerations Present Contractions on Admission: None Longoria Scoring Tool (Modified) Dilation (cm): 1-2cm (1) Effacement (%): 31-51% (1) Descent/Station: -3 (0) Cervix Consistency: Medium(1) Cervix Position: Middle/Mid-Position (1) Add 1 point for: Pre-eclampsia (1) Longoria Score: 4 Labs Laboratory Tests Test 08/28/17 20:15 08/28/17 20:30 Range/Units White Blood Count 8.1 4.3-11.0 10^3/uL Red Blood Count 3.83 L 4.35-5.85 10^6/uL Hemoglobin 11.5 11.5-16.0 G/DL Hematocrit 34 L 35-52 % Mean Corpuscular Volume 89 80-99 FL Mean Corpuscular Hemoglobin 30 25-34 PG Mean Corpuscular Hemoglobin Concent 34 32-36 G/DL Red Cell Distribution Width 13.0 10.0-14.5 % Platelet Count 263 130-400 10^3/uL Mean Platelet Volume 12.3 H 7.4-10.4 FL Neutrophils (%) (Auto) 66 42-75 % Lymphocytes (%) (Auto) 23 12-44 % Monocytes (%) (Auto) 9 0-12 % Eosinophils (%) (Auto) 1 0-10 % Basophils (%) (Auto) 0 0-10 % Neutrophils # (Auto) 5.3 1.8-7.8 X 10^3 Lymphocytes # (Auto) 1.9 1.0-4.0 X 10^3 Monocytes # (Auto) 0.8 0.0-1.0 X 10^3 Eosinophils # (Auto) 0.1 0.0-0.3 10^3/uL Basophils # (Auto) 0.0 0.0-0.1 10^3/uL Sodium Level 133 L 135-145 MMOL/L Potassium Level 3.8 3.6-5.0 MMOL/L Chloride Level 104 98-107 MMOL/L Carbon Dioxide Level 19 L 21-32 MMOL/L Anion Gap 10 5-14 MMOL/L Blood Urea Nitrogen 8 7-18 MG/DL Creatinine 0.54 L 0.60-1.30 MG/DL Estimat Glomerular Filtration Rate > 60 BUN/Creatinine Ratio 15 Glucose Level 92 70-105 MG/DL Uric Acid 4.6 2.6-7.2 MG/DL Calcium Level 8.5 8.5-10.1 MG/DL Total Bilirubin 0.3 0.1-1.0 MG/DL Aspartate Amino Transf (AST/SGOT) 9 5-34 U/L Alanine Aminotransferase (ALT/SGPT) 7 0-55 U/L Alkaline Phosphatase 143 H 40-136 U/L Total Protein 6.3 L 6.4-8.2 GM/DL Albumin 3.0 L 3.2-4.5 GM/DL Urine Color YELLOW Urine Clarity CLEAR Urine pH 7 5-9 Urine Specific [place] 1.015 L 1.016-1.022 Urine Protein 3+ H NEGATIVE Urine Glucose (UA) NEGATIVE NEGATIVE Urine Ketones NEGATIVE NEGATIVE Urine Nitrite NEGATIVE NEGATIVE Urine Bilirubin NEGATIVE NEGATIVE Urine Urobilinogen NORMAL NORMAL MG/DL Urine Leukocyte Esterase NEGATIVE NEGATIVE Urine RBC (Auto) NEGATIVE NEGATIVE Urine RBC NONE /HPF Urine WBC 0-2 /HPF Urine Squamous Epithelial Cells 10-25 H /HPF Urine Crystals NONE /LPF Urine Bacteria FEW H /HPF Urine Casts NONE /LPF Urine Mucus MODERATE H /LPF Urine Culture Indicated NO OB - Assessment/Plan/Diagnosis Assessment Assessment: induction of labor (due to preeclampsia at 38w4d ) Plan Plan: Induction Induction Method: other (cervidil) CHRISSIE HERNANDEZ MD Aug 29, 2017 07:36
[2017-08-29] MEDS ORDERED: OXYTOCIN/NORMAL SALINE 500 ML IV SCH ×2 (07:38→18:36)
[2017-08-29] MEDS ORDERED: INFLUENZA TRIvalent 2017-2018 0.5 ML/45 MCG SYR IM ONE (07:45)
[2017-08-29] MEDS ORDERED: BUPIVACAINE 0.25% 30 ML (SENSORCAINE) VIAL ONE (07:49)
[2017-08-29] MEDS ORDERED: fentaNYL INJECTION 100 MCG/2 ML AMP ONE (07:50)
[2017-08-29] MEDS ORDERED: LACTATED RINGERS 1,000 ML IV SCH (08:34)
[2017-08-29] MEDS ORDERED: NALOXONE 0.4 MG/ML 1 ML (NARCAN) VIAL IV PRN ×2 (08:45)
[2017-08-29] MEDS ORDERED: diphenhydrAMINE 50 MG/ML INJ (BENADRYL) IV PRN (08:45)
[2017-08-29] MEDS ORDERED: EPIDURAL (SUFENTA 0.6MCG/ML BUPIVA 0.125%) 100 ML BAG EPI PRN (08:45)
[2017-08-29] MEDS ORDERED: METOCLOPRAMIDE INJ 10 MG/2 ML (REGLAN) IV PRN (08:45)
[2017-08-29] MEDS ORDERED: ONDANSETRON 4 MG/2 ML (SDV) Z0FRAN IV PRN (08:45)
[2017-08-29] MEDS ORDERED: MEPIVACAINE (CARBOCAINE) 2% 50 ML VIAL ONE (18:07)
--- NOTE | 2017-08-29 18:40 | OB Labor & Delivery Record ---
L&D History Date of Service Date of Service: Aug 29, 2017 History Expected Date of Delivery: Sep 07, 2017 Gestational Age in Weeks: 38 Hx : 1 Hx Para: 0 Complications Events: Pre-Eclampsia Operative Indications (Cesarea: N/A-Vaginal Delivery Intrapartal Events: Mild Preeclampsia L&D Stage1 Stage One Onset of Labor - Date: Aug 29, 2017 Onset of Labor - Time: 07:06 Monitors and Tracing Monitor Mode: Internal Heart Rate: 130 Monitor Accelerations: Uniform Monitor Decelerations: Variable Station: -3 Fci Variability: Average (6-10) Short Term Variability: Present Presentation: Vertex Vital Signs VS - Last 72 Hours, by Label 08/28/17 08/28/17 08/29/17 08/29/17 19:52 20:11 00:00 00:08 Temp 98.9 97.2 Pulse 89 88 66 68 Resp 18 18 B/P (MAP) 157/96 139/90 157/80 159/89 08/29/17 08/29/17 08/29/17 08/29/17 00:12 00:18 04:10 07:30 Temp 97.0 98.3 Pulse 70 71 60 71 Resp 18 18 B/P (MAP) 147/87 148/94 136/88 167/67 08/29/17 08/29/17 08/29/17 08/29/17 08:00 08:05 08:10 08:15 Pulse 92 80 89 83 Resp 18 18 18 18 B/P (MAP) 166/92 174/84 140/91 144/96 Pulse Ox 99 99 98 98 08/29/17 08/29/17 08/29/17 08/29/17 08:20 08:25 08:30 08:35 Pulse 86 75 85 86 Resp 18 18 18 18 B/P (MAP) 144/83 137/73 138/85 134/80 Pulse Ox 99 99 99 99 08/29/17 08/29/17 08/29/17 08/29/17 08:40 08:45 08:50 08:55 Pulse 81 105 84 69 Resp 18 18 18 18 B/P (MAP) 126/70 122/63 126/61 134/69 Pulse Ox 99 99 99 99 08/29/17 08/29/17 08/29/17 08/29/17 09:00 09:15 09:30 09:45 Temp 98.3 Pulse 89 103 108 85 Resp 18 18 18 18 B/P (MAP) 135/71 118/48 112/56 118/59 Pulse Ox 99 99 99 99 08/29/17 08/29/17 08/29/17 08/29/17 10:00 10:15 10:30 10:45 Temp 98.1 Pulse 65 83 75 68 Resp 18 18 18 18 B/P (MAP) 115/56 122/63 118/58 114/59 Pulse Ox 99 99 99 99 08/29/17 08/29/17 08/29/17 08/29/17 11:00 11:15 11:30 11:45 Temp 98.5 Pulse 66 68 75 75 Resp 18 18 18 18 B/P (MAP) 122/78 128/75 111/65 116/68 Pulse Ox 99 99 99 99 08/29/17 08/29/17 08/29/17 08/29/17 12:00 12:15 12:30 12:45 Pulse 71 69 91 81 Resp 18 18 18 18 B/P (MAP) 119/67 121/69 122/67 123/70 Pulse Ox 99 97 98 98 08/29/17 08/29/17 08/29/17 08/29/17 13:00 13:15 13:30 13:45 Temp 98.5 Pulse 82 84 67 64 Resp 18 18 18 18 B/P (MAP) 135/76 122/71 119/68 108/55 Pulse Ox 98 98 98 97 08/29/17 08/29/17 08/29/17 08/29/17 14:00 14:15 14:30 14:45 Pulse 64 94 67 67 Resp 18 18 18 18 B/P (MAP) 118/63 127/77 144/82 126/70 Pulse Ox 100 100 100 100 O2 Delivery Non Rebreather Non Rebreather Non Rebreather Non Rebreather O2 Flow Rate 10.00 10.00 10.00 10.00 08/29/17 08/29/17 08/29/17 08/29/17 15:00 15:15 15:30 15:45 Temp 98.8 Pulse 71 82 80 80 Resp 18 18 18 18 B/P (MAP) 132/73 147/74 134/77 134/77 Pulse Ox 100 100 99 99 O2 Delivery Room Air Room Air Room Air Room Air 08/29/17 08/29/17 08/29/17 08/29/17 16:00 16:15 16:30 16:45 Temp 98.5 Pulse 82 62 61 61 Resp 18 18 18 18 B/P (MAP) 131/78 126/72 133/72 126/74 Pulse Ox 97 97 97 100 O2 Delivery Room Air Room Air Room Air Non Rebreather O2 Flow Rate 10.00 Signs of Distress by FHT Signs of Distress no Rupture of Membranes Spontaneous Ruture of Membrane: No Amniotic Membrane Rupture Time: 705 Amniotic Membrane Fluid Desc.: Clear Vaginal Bleeding Description: None Induction/Anesthesia Epidural Cath Placement - Time: 809 L&D Stage2 Stage Two Stage II Date: Aug 29, 2017 Stage II Time: 17:40 Monitors and Tracing Monitor Mode: Internal Heart Rate: 130 Monitor Accelerations: Uniform Monitor Decelerations: Variable Fci Variability: Average (6-10) Short Term Variability: Present Position: Left Occiput Anterior Presentation: Vertex Signs of Distress by FHT Signs of Distress no Cord Descript/Complications Cord Vessel Description: 3 Vessels Delivery Type Delivery Method: Spontaneous Vaginal Episiotomy/Perineal Laceration Laceraction(s)/Extensions: Yes Episiotomy Description: Midline Sutures Used: Vicryl Condition of Delivery 1 minute Comment: 8 5 minute Comment: 9 Condition of Condition of Infant: Living Exam: No Observed Abnormalities Resuscitation Resuscitation: N/A - Spontaneous Resp L&D Stage3 Stage Three Stage III Date: Aug 29, 2017 Stage III Time: 18:06 Pictocin Pitocin Administration mu/min: 34 Pitocin ml/hr: 34 Placenta Delivery Placenta Delivery: Spontaneous Delivery Summary Summary Vaginal blood loss >500ml: No 250 Condition of Delivery Examined: Cervix Examined Post Hemorrhage: No CHRISSIE HERNANDEZ MD Aug 29, 2017 18:40
[2017-08-29] MEDS ORDERED: HYDROcodone/APAP 5 MG/325 MG (LORTAB) TAB PO PRN (18:45)
[2017-08-29] MEDS ORDERED: MEASLES,MUMPS,RUBELLA 1 EA INJ SQ ONE (18:45)
[2017-08-29] MEDS ORDERED: WITCH HAZEL(TUCKS) 40 EA JAR TOP PRN (18:45)
[2017-08-29] MEDS ORDERED: BENZOCAINE/MENTHOL (DERMOPLAST) 56 ML CAN TP PRN (18:45)
[2017-08-29] MEDS ORDERED: TETANUS,DIPTH,PERTUSS P/F (BOOSTRIX) 0.5 ML VIAL IM ONE (18:45)
[2017-08-29] MEDS: IBUPROFEN 600 MG (MOTRIN) TAB PO SCH (20:04)
[2017-08-29] MEDS ORDERED: CATHETER FLUSH 10 ML SYR IV SCH (22:00)
[2017-08-30 02:12] VITALS: BP 133/80
[2017-08-30] MEDS: IBUPROFEN 600 MG (MOTRIN) TAB PO SCH ×4 (02:13→21:16)
[2017-08-30] MEDS ORDERED: PRENATAL VITAMIN 1 EA TAB PO SCH (07:00)
[2017-08-30 07:33] LABS: BASOPHILS % (AUTO) 0 % (0-10); EOSINOPHILS # (AUTO) 0.1 10^3/uL (0.0-0.3); EOSINOPHILS % (AUTO) 1 % (0-10); LYMPHOCYTES # (AUTO) 2.7 X 10^3 (1.0-4.0); LYMPHOCYTES % (AUTO) 18 % (12-44); MEAN CORPUSCULAR HEMOGLOBIN 30 PG (25-34); MEAN CORPUSCULAR HGB CONC 33 G/DL (32-36); MEAN CORPUSCULAR VOLUME 90 FL (80-99); MEAN PLATELET VOLUME 12.6 FL (7.4-10.4); MONOCYTES # (AUTO) 1.1 X 10^3 (0.0-1.0); MONOCYTES % (AUTO) 7 % (0-12); NEUTROPHILS # (AUTO) 11.4 X 10^3 (1.8-7.8); NEUTROPHILS % (AUTO) 74 % (42-75); PLATELET COUNT 211 10^3/uL (130-400); RED BLOOD COUNT 3.36 10^6/uL (4.35-5.85); RED CELL DISTRIBUTION WIDTH 13.2 % (10.0-14.5); WHITE BLOOD COUNT 15.4 10^3/uL (4.3-11.0)
--- NOTE | 2017-08-30 08:14 | Progress Note (SOAP) ---
Subjective Subjective/Events-last exam Doing well. Denies MCKEON, abdominal pain. Lochia decreased. Review of Systems Date Seen by Provider: Aug 30, 2017 Time Seen by Provider: 08:14 Objective Exam Last Set of Vital Signs Vital Signs Date Time Temp Pulse Resp B/P (MAP) Pulse Ox O2 Delivery O2 Flow Rate FiO2 08/30/17 02:12 97.0 67 18 133/80 98 08/29/17 19:00 Room Air 08/29/17 18:00 10.00 Capillary Refill : General: Alert, Oriented X3, Cooperative Abdomen: Soft, No Tenderness, Other (uterus firm) Psych/Mental Status: Mood NL Results/Procedures Lab Laboratory Tests 08/30/17 07:08: White Blood Count 15.4H, Red Blood Count 3.36L, Hemoglobin 10.0L, Hematocrit 30L , Mean Corpuscular Volume 90, Mean Corpuscular Hemoglobin 30, Mean Corpuscular Hemoglobin Concent 33, Red Cell Distribution Width 13.2, Platelet Count 211, Mean Platelet Volume 12.6H, Neutrophils (%) (Auto) 74, Lymphocytes (%) (Auto) 18 , Monocytes (%) (Auto) 7, Eosinophils (%) (Auto) 1, Basophils (%) (Auto) 0, Neutrophils # (Auto) 11.4H, Lymphocytes # (Auto) 2.7, Monocytes # (Auto) 1.1H, Eosinophils # (Auto) 0.1, Basophils # (Auto) 0.0 Assessment/Plan Assessment/Plan (1) Status post vaginal delivery Onset Date: ~ 08/29/2017 Status: Acute Permanent Comment: s/p episiotomy repair Last Edited By: Maria M Grider on Aug 30, 2017 08:13 Assessment & Plan: Anticipate routine care. (2) Pre-eclampsia, mild, delivered Status: Acute Assessment & Plan: - did not require mag sulfate during labor/delivery - monitor BP today - anticipate DC home tomorrow Clinical Quality Measures DVT/VTE Risk/Contraindication: Risk Factor Score Per Nursin RFS Level Per Nursing on Admit: 1=Low/No VTE PPX MARIA M GRIDER DO Aug 30, 2017 08:14
[2017-08-30] MEDS ORDERED: INFLUENZA TRIvalent 2017-2018 0.5 ML/45 MCG SYR IM ONE (09:03)
[2017-08-30 09:30] VITALS: BP 117/78
--- NOTE | 2017-08-30 11:01 | Anesthesia-Regional Post-Op ---
Regional Patient Condition Mental Status: Alert, Oriented x3 Circulation: Same as Pre-Op Headache: Absent Sensation: Full Recovery Motor Block: Absent Post Op Complications Complications None Follow Up Care/Instructions Patient Instructions None needed. Anesthesia/Patient Condition Patient is doing well, no complaints, stable vital signs, no apparent adverse anesthesia problems. No complications reported per nursing. GUADALUPE PAYNE CRNA Aug 30, 2017 11:01
[2017-08-30 12:00] VITALS: BP 134/89
[2017-08-30 18:45] VITALS: BP 132/73
[2017-08-30 21:17] VITALS: BP 146/97
[2017-08-31 00:25] VITALS: BP 148/95
[2017-08-31 03:20] VITALS: BP 126/79
[2017-08-31] MEDS: IBUPROFEN 600 MG (MOTRIN) TAB PO SCH ×2 (03:30→09:22)
[2017-08-31 09:00] VITALS: BP 128/84
--- NOTE | 2017-08-31 10:17 | Discharge Summary ---
Diagnosis/Chief Complaint Date of Admission Aug 28, 2017 at 19:33 Date of Discharge Aug 31, 2017 Admission Diagnosis Admission Diagnosis induction of labor (due to preeclampsia at 38w4d ) Discharge Diagnosis (1) Status post vaginal delivery Onset Date: ~ 08/29/2017 Status: Acute Permanent Comment: s/p episiotomy repair Last Edited By: Maria M Grider on Aug 30, 2017 08:13 Assessment & Plan: Routine care. (2) Pre-eclampsia, mild, delivered Status: Acute Assessment & Plan: - did not require mag sulfate during labor/delivery - BP improved post- Discharge Summary-OBS Procedures None. Discharge Physical Examination Allergies: Coded Allergies: Penicillins (Verified Allergy, Intermediate, Swelling, 08/28/17) latex (Verified Allergy, Intermediate, RASH, 08/28/17) Vitals & I&Os Vital Sign - Last 12Hours Date Time Temp Pulse Resp B/P (MAP) Pulse Ox O2 Delivery O2 Flow Rate FiO2 08/31/17 03:20 98.8 80 18 126/79 99 Room Air 08/29/17 18:00 10.00 General Appearance: Alert, Oriented X3, Cooperative Psych/Mental Status: Mood NL Hospital Course Routine post- care Discharge Instructions to patient/family Please see electronic discharge instructions given to patient. Discharge Medications Reviewed and agree with Discharge Medication list on patient's Discharge Instruction sheet Clinical Quality Measures DVT/VTE Risk/Contraindication: Risk Factor Score Per Nursin RFS Level Per Nursing on Admit: 1=Low/No VTE PPX MARIA M GRIDER DO Aug 31, 2017 10:17
[2017-08-31] MEDS ORDERED: IBUP-1773 PO (10:20)
--- NOTE | 2017-08-31 10:22 | Discharge Instructions ---
Discharge Inst-Women's Serv Depart Medications New, Converted or Re-Newed RX: Transmitted to Pharmacy ([facility]) New Medications: Ibuprofen (Ibuprofen) 600 Mg Tablet 600 MG PO Q6H PRN for CRAMPS, #90 TAB Continued Medications: Vit No.124/Iron/FA ( Vitamin Tablet) 1 Each Tablet 1 EACH PO DAILY, TAB Follow Up/Instructions Goal/Follow Up: Follow-up at [facility] in 6 weeks for post- check. Activity Activity: Activity as Tolerated Nothing Inside Vagina: No Douching, No Thomson, No Tampons Diet Discharge Diet: No Restrictions Symptoms to Report to : Bleeding Excessive, Eyesight Changes, Pain Increased , Fever Over 101 Degrees F, Vaginal Bleeding Increase, Vaginal Discharge Foul, Shortness of Breath For Any Problems or Questions: Contact Your Physician MARIA M GRIDER DO Aug 31, 2017 10:22
[2017-08-31 12:15] VITALS: BP 138/88
[2017-08-31 14:15] VITALS: BP 138/88
== END 2017-08-31 14:15 | disposition home or self-care (01) | DRG 775 ==
LOC: LDRP 19:33
PROVIDERS: ADMIT Family Medicine; ATTEND Family Medicine
PROC: 0W8NXZZ Division of Female Perineum, External Approach (ICD-10-PCS; principal; 2017-08-29)
PROC: 10E0XZZ Delivery of Products of Conception, External Approach (ICD-10-PCS; 2017-08-29)
PROC: 3E0P7GC Introduction of Other Therapeutic Substance into Female Reproductive, Via Natural or Artificial Opening (ICD-10-PCS; 2017-08-29)
DX: O14.04 Mild to moderate pre-eclampsia, complicating childbirth (principal); Z3A.38 38 weeks gestation of pregnancy; Z23 Encounter for immunization; Z37.0 Single live birth
CPT/HCPCS: 36415; 80053; 81000; 84550; 85025; 86850; 86900; 86901

== ENCOUNTER → 2018-08-03 | Outpatient (CLI) | payer MEDICAID ==
--- NOTE | 2018-08-03 15:41 | Diagnostic Imaging Report ---
INDICATION: survey. TECHNIQUE: Multiple real-time grayscale images were obtained over the gravid uterus. COMPARISON: None. FINDINGS: There is a single live fetus in a cephalic presentation. heart rate was recorded at 136 beats per minute. Placenta is posterior. The amniotic fluid index is 8.9 cm. survey demonstrates kidneys, bladder, and stomach to be unremarkable. There is a four-chamber heart. There is a three-vessel cord. Cord insertion was not well seen. In addition, spine is limited in evaluation. The posterior fossa of the brain is also somewhat limited due to position. Biometrical measurements are as follows: Biparietal 8.31 cm, age 33 weeks 4 days. Head circumference 29.59 cm, age 32 weeks 5 days. Abdominal circumference 29.13 cm, age 33 weeks 1 days. Femur length 5.84 cm, age 30 weeks 4 days. Sonographic estimate age: 32 weeks 4 days. Sonographic estimated date of delivery: 09/24/18. Estimated Weight: 1956 gm (+/- 286 gm). LMP percentile: 98%. heart rate: 136 beats per minute. number: 1 of 1. IMPRESSION: Single live IUP at approximately 32 to 33 weeks gestational age. Estimated date of confinement sonographically is 09/24/2018. survey is somewhat limited but no gross abnormality is seen. Dictated by: Dictated on workstation # [id number]
== END ==
LOC: RAD 11:33
PROVIDERS: ATTEND Family Medicine
DX: Z36.89 Encounter for other specified antenatal screening (principal); Z3A.32 32 weeks gestation of pregnancy
CPT/HCPCS: 76805

== ENCOUNTER 2018-09-24 19:13 | Inpatient (IN) | payer MEDICAID ==
[~2018-09-24] VITALS: Ht 172.7 cm; Wt 87.5 kg
[2018-09-24 19:51] VITALS: BP 138/85
[2018-09-24] MEDS ORDERED: DINOPROSTONE 10 MG (CERVIDIL) INSERT ONE (20:11)
[2018-09-24] MEDS ORDERED: D5 LR IV SOLUTION 1,000 ML IV ONE (20:11)
[2018-09-24] MEDS ORDERED: MINERAL OIL CONCENTRATE 99.9% 15 ML UDC TOP PRN (20:15)
[2018-09-24] MEDS ORDERED: DINOPROSTONE 10 MG (CERVIDIL) INSERT PV ONE (20:15)
[2018-09-24] MEDS ORDERED: FLU QUADRIvalent (5+ YOA) 2018-2019 (AFLURIA) 0.5 ML IM ONE (20:15)
[2018-09-24] MEDS ORDERED: ZOLPIDEM 5 MG (AMBIEN) TAB PO PRN (20:15)
[2018-09-24] MEDS ORDERED: CATHETER FLUSH 10 ML SYR IV PRN (20:15)
[2018-09-24] MEDS ORDERED: BUTORPHANOL INJ 2 MG/ML (STADOL) VIAL IV PRN (20:15)
[2018-09-24 20:16] LABS: BASOPHILS % (AUTO) 0 % (0-10); EOSINOPHILS # (AUTO) 0.1 10^3/uL (0.0-0.3); EOSINOPHILS % (AUTO) 1 % (0-10); HEMATOCRIT 30 % (35-52); HEMOGLOBIN 9.6 G/DL (11.5-16.0); LYMPHOCYTES # (AUTO) 1.7 X 10^3 (1.0-4.0); LYMPHOCYTES % (AUTO) 25 % (12-44); MEAN CORPUSCULAR HEMOGLOBIN 24 PG (25-34); MEAN CORPUSCULAR HGB CONC 32 G/DL (32-36); MEAN CORPUSCULAR VOLUME 75 FL (80-99); MEAN PLATELET VOLUME 12.5 FL (7.4-10.4); MONOCYTES # (AUTO) 0.7 X 10^3 (0.0-1.0); MONOCYTES % (AUTO) 10 % (0-12); NEUTROPHILS # (AUTO) 4.4 X 10^3 (1.8-7.8); NEUTROPHILS % (AUTO) 64 % (42-75); PLATELET COUNT 311 10^3/uL (130-400); RED BLOOD COUNT 4.01 10^6/uL (4.35-5.85); RED CELL DISTRIBUTION WIDTH 15.4 % (10.0-14.5); WHITE BLOOD COUNT 6.9 10^3/uL (4.3-11.0)
[2018-09-24 20:18] LABS: BILIRUBIN,URINE NEGATIVE (NEGATIVE); CLARITY,URINE VERY CLOUDY; COLOR,URINE YELLOW; GLUCOSE, URINE (UA) NEGATIVE (NEGATIVE); KETONES,URINE NEGATIVE (NEGATIVE); LEUKOCYTE ESTERASE ,URINE 3+ (NEGATIVE); NITRITE,URINE NEGATIVE (NEGATIVE); PH,URINE 6 (5-9); PROTEIN,URINE 3+ (NEGATIVE); UROBILINOGEN,URINE 1 MG/DL (NORMAL)
[2018-09-24 20:30] LABS: BACTERIA,URINE LARGE /HPF; SQUAMOUS EPITHELIAL CELL,UR 25-50 /HPF; WBC,URINE 25-50 /HPF
[2018-09-24] MEDS: D5 LR IV SOLUTION 1,000 ML IV SCH (20:33)
[2018-09-25] VITALS (49 sets, daily range): BP systolic 117–175; BP diastolic 61–98
[2018-09-25] MEDS: D5 LR IV SOLUTION 1,000 ML IV SCH ×2 (04:07→10:18)
[2018-09-25] MEDS ORDERED: OXYTOCIN/NORMAL SALINE 500 ML IV SCH ×3 (07:28→11:10)
--- NOTE | 2018-09-25 07:28 | History & Physical-OB ---
OB - Chief Complaint & HPI Date/Time Date of Admission: Date of Admission: Sep 24, 2018 at 19:13 Date seen by a Provider: Sep 25, 2018 Time Seen by a Provider: 07:10 Chief Complaint/History OB-Reason for Admission/Chief: Induction of Labor Hx : 2 Hx Para: 1 Expected Date of Delivery: Sep 24, 2018 Gestational Age in Weeks: 40 Gestational Age in Days: 0 Admission Nurse Assessment Rev: Yes History of Labs GBS negative Allergies and Home Medications Allergies Coded Allergies: Penicillins (Verified Allergy, Intermediate, Swelling, 08/28/17) latex (Verified Allergy, Intermediate, RASH, 08/28/17) Home Medications Vit No.124/Iron/FA 1 Each Tablet, 1 EACH PO DAILY, (Reported) Patient Home Medication List Home Medication List Reviewed: Yes OB - History Hx of Present Care: Yes Ultrasounds: Normal mid trimester US Obstetrical Complications: None Medical Complications: None Delivery History Adverse Rxn to Tranfusion: No Patient Past Medical History no chronic medical problems Social History/Family History Recent Infectious Disease Expo: No Alcohol Use: Denies Use Recreational Drug Use: No OB - Admission Exam Physical Exam Vitals: Vital Signs 09/25/18 04:55 Temp 96.2 Pulse 69 Resp 16 B/P (MAP) 135/82 (99) HEENT: Moist Membranes Lungs: Clear Cervical Dilatation: 3cm Effacement: 50% Membranes: Intact Heart Rate: 140's Accelerations: Accelerations Present Decelerations: No Decelerations Short Term Variability: Present [place] Variability: Average (6-25) Contractions on Admission: >10 Minutes Apart Intensity: Mild Longoria Scoring Tool (Modified) Dilation (cm): 3-4cm (2) Effacement (%): 31-51% (1) Descent/Station: -3 (0) Cervix Consistency: Medium(1) Cervix Position: Posterior (0) Add 1 point for: Each previous vaginal delivery (1) Longoria Score: 5 Labs Laboratory Tests Test 09/24/18 19:55 09/24/18 20:00 Range/Units White Blood Count 6.9 4.3-11.0 10^3/uL Red Blood Count 4.01 L 4.35-5.85 10^6/uL Hemoglobin 9.6 L 11.5-16.0 G/DL Hematocrit 30 L 35-52 % Mean Corpuscular Volume 75 L 80-99 FL Mean Corpuscular Hemoglobin 24 L 25-34 PG Mean Corpuscular Hemoglobin Concent 32 32-36 G/DL Red Cell Distribution Width 15.4 H 10.0-14.5 % Platelet Count 311 130-400 10^3/uL Mean Platelet Volume 12.5 H 7.4-10.4 FL Neutrophils (%) (Auto) 64 42-75 % Lymphocytes (%) (Auto) 25 12-44 % Monocytes (%) (Auto) 10 0-12 % Eosinophils (%) (Auto) 1 0-10 % Basophils (%) (Auto) 0 0-10 % Neutrophils # (Auto) 4.4 1.8-7.8 X 10^3 Lymphocytes # (Auto) 1.7 1.0-4.0 X 10^3 Monocytes # (Auto) 0.7 0.0-1.0 X 10^3 Eosinophils # (Auto) 0.1 0.0-0.3 10^3/uL Basophils # (Auto) 0.0 0.0-0.1 10^3/uL Urine Color YELLOW Urine Clarity VERY CLOUDY H Urine pH 6 5-9 Urine Specific [place] 1.020 1.016-1.022 Urine Protein 3+ H NEGATIVE Urine Glucose (UA) NEGATIVE NEGATIVE Urine Ketones NEGATIVE NEGATIVE Urine Nitrite NEGATIVE NEGATIVE Urine Bilirubin NEGATIVE NEGATIVE Urine Urobilinogen 1 NORMAL MG/DL Urine Leukocyte Esterase 3+ H NEGATIVE Urine RBC (Auto) 2+ H NEGATIVE Urine RBC 10-25 H /HPF Urine WBC 25-50 H /HPF Urine Squamous Epithelial Cells 25-50 H /HPF Urine Crystals NONE /LPF Urine Bacteria LARGE H /HPF Urine Casts NONE /LPF Urine Mucus MODERATE H /LPF Urine Culture Indicated YES OB - Assessment/Plan/Diagnosis Assessment Assessment: induction of labor Admission Dx 1. IUP at 40 weeks. Admission Status: Inpatient Order (span 2 midnights) Reason for Inpatient Admission: labor and delivery Plan Plan: Induction Induction Method: other (cervidil) Other Plan -epidual planned -pitocin CHRISSIE HERNANDEZ MD Sep 25, 2018 07:28
[2018-09-25] MEDS ORDERED: SUFENTA 0.6MCG/ML BUPIVA 0.125 100 ML ONE (07:51)
[2018-09-25] MEDS ORDERED: OXYTOCIN/NORMAL SALINE 500 ML IV ONE (07:51)
[2018-09-25] MEDS ORDERED: LIDOCAINE PF 2% 5 ML (XYLOCAINE) VIAL ONE (08:32)
[2018-09-25] MEDS ORDERED: fentaNYL INJECTION 100 MCG/2 ML AMP ONE (08:32)
[2018-09-25] MEDS ORDERED: BUPIVACAINE 0.25% 30 ML (SENSORCAINE) VIAL ONE (08:32)
[2018-09-25] MEDS ORDERED: METHYLERGONOVINE 0.2 MG/ML (METHERGINE) AMP ONE (10:04)
[2018-09-25] MEDS ORDERED: MEPIVACAINE (CARBOCAINE) 2% 50 ML VIAL ONE (10:06)
[2018-09-25] MEDS ORDERED: METHYLERGONOVINE 0.2 MG/ML (METHERGINE) AMP IM ONE (10:15)
[2018-09-25] MEDS ORDERED: ONDANSETRON 4 MG/2 ML (SDV) Z0FRAN IV PRN (10:15)
[2018-09-25] MEDS ORDERED: EPIDURAL (SUFENTA 0.6MCG/ML BUPIVA 0.125%) 100 ML BAG EPI SCH (10:15)
[2018-09-25] MEDS ORDERED: LACTATED RINGERS 1,000 ML IV ONE (10:15)
[2018-09-25] MEDS ORDERED: CATHETER FLUSH 10 ML SYR IV PRN (10:15)
[2018-09-25] MEDS ORDERED: NALOXONE 0.4 MG/ML 1 ML (NARCAN) VIAL IV PRN (10:15)
[2018-09-25] MEDS ORDERED: diphenhydrAMINE 50 MG/ML INJ (BENADRYL) IV PRN (10:15)
[2018-09-25] MEDS ORDERED: TETANUS,DIPTH,PERTUSS P/F (BOOSTRIX) 0.5 ML VIAL IM ONE (11:15)
[2018-09-25] MEDS ORDERED: MEASLES,MUMPS,RUBELLA 1 EA INJ SQ ONE (11:15)
[2018-09-25] MEDS ORDERED: HYDROcodone/APAP 5 MG/325 MG (LORTAB) TAB PO PRN (11:15)
[2018-09-25] MEDS ORDERED: DIBUCAINE (NUPERCAINAL) 1% OINT 30 GM TOP PRN (11:15)
[2018-09-25] MEDS ORDERED: IBUPROFEN 600 MG (MOTRIN) TAB PO SCH (11:15)
[2018-09-25] MEDS ORDERED: WITCH HAZEL(TUCKS) 40 EA JAR TOP PRN ×2 (11:15)
[2018-09-25] MEDS ORDERED: BENZOCAINE/MENTHOL (DERMOPLAST) 56 ML CAN TP PRN ×2 (11:15)
--- NOTE | 2018-09-25 11:16 | OB Labor & Delivery Record ---
L&D History Date of Service Date of Service: Sep 25, 2018 History Expected Date of Delivery: Sep 24, 2018 Gestational Age in Weeks: 40 Hx : 2 Hx Para: 1 Complications Events: Routine care Operative Indications (Cesarea: N/A-Vaginal Delivery Intrapartal Events: Bleeding L&D Stage1 Stage One Onset of Labor - Date: Sep 25, 2018 Onset of Labor - Time: 07:00 Monitors and Tracing Monitor Mode: Internal Heart Rate: 130 Monitor Accelerations: Uniform Monitor Decelerations: None Customs Director Variability: Average (6-10) Short Term Variability: Present Presentation: Vertex Vital Signs VS - Last 72 Hours, by Label 09/24/18 09/24/18 09/25/18 09/25/18 19:51 21:00 00:00 04:55 Temp 97.4 96.8 96.2 Pulse 75 57 69 Resp 18 16 B/P (MAP) 138/85 (102) 120/66 (84) 135/82 (99) Signs of Distress by FHT Signs of Distress no Rupture of Membranes Spontaneous Ruture of Membrane: No Amniotic Membrane Rupture Time: 07:00 Amniotic Membrane Fluid Desc.: Clear Induction/Anesthesia Epidural Cath Placement - Time: 0846 L&D Stage2 Stage Two Stage II Date: Sep 25, 2018 Stage II Time: 09:59 Monitors and Tracing Monitor Mode: Internal Heart Rate: 130 Monitor Accelerations: Uniform Monitor Decelerations: Variable Custodial Variability: Average (6-10) Position: Left Occiput Anterior Presentation: Vertex Signs of Distress by FHT Signs of Distress no Cord Descript/Complications Cord Vessel Description: 3 Vessels Delivery Type Infant Delivery Method: Spontaneous Vaginal Anterior Shoulder: Left Episiotomy/Perineal Laceration Laceraction(s)/Extensions: Yes Episiotomy Description: Midline Sutures Used: Vicryl Condition of Delivery 1 minute Comment: 9 5 minute Comment: 9 Condition of Infant Condition of Infant: Living Exam: No Observed Abnormalities Resuscitation Resuscitation: N/A - Spontaneous Resp L&D Stage3 Stage Three Stage III Date: Sep 25, 2018 Stage III Time: 10:02 Pictocin Pitocin ml/hr: 125 Placenta Delivery Placenta Delivery: Manual Delivery Summary Summary Estimated blood loss (mL): 1500 Condition of Delivery Examined: Cervix Examined Post Hemorrhage: Yes Intervention Required Methergine IM, followed by po methergine Pitocin continued following delivery CHRISSIE HERNANDEZ MD Sep 25, 2018 11:16
[2018-09-25 13:16] LABS: HEMOGLOBIN 7.9 G/DL (11.5-16.0)
[2018-09-25] MEDS ORDERED: CATHETER FLUSH 10 ML SYR IV SCH (14:00)
[2018-09-25] MEDS: METHYLERGONOVINE 0.2 MG (MEHTERGINE) TAB PO SCH ×2 (14:04→20:13)
[2018-09-25] MEDS: IBUPROFEN 600 MG (MOTRIN) TAB PO SCH ×2 (14:05→20:13)
[2018-09-25] MEDS: DOCUSATE SODIUM 100 MG (COLACE) CAP PO SCH (20:13)
[2018-09-26 01:00] VITALS: BP 121/81
[2018-09-26] MEDS: METHYLERGONOVINE 0.2 MG (MEHTERGINE) TAB PO SCH (02:36)
[2018-09-26] MEDS: IBUPROFEN 600 MG (MOTRIN) TAB PO SCH ×3 (02:36→14:16)
[2018-09-26 04:23] VITALS: BP 122/68
[2018-09-26 06:51] LABS: BASOPHILS % (AUTO) 0 % (0-10); EOSINOPHILS # (AUTO) 0.1 10^3/uL (0.0-0.3); EOSINOPHILS % (AUTO) 1 % (0-10); HEMATOCRIT 22 % (35-52); LYMPHOCYTES # (AUTO) 2.5 X 10^3 (1.0-4.0); LYMPHOCYTES % (AUTO) 26 % (12-44); MEAN CORPUSCULAR HEMOGLOBIN 23 PG (25-34); MEAN CORPUSCULAR HGB CONC 31 G/DL (32-36); MEAN CORPUSCULAR VOLUME 77 FL (80-99); MEAN PLATELET VOLUME 12.4 FL (7.4-10.4); MONOCYTES # (AUTO) 0.9 X 10^3 (0.0-1.0); MONOCYTES % (AUTO) 9 % (0-12); NEUTROPHILS # (AUTO) 6.1 X 10^3 (1.8-7.8); NEUTROPHILS % (AUTO) 64 % (42-75); PLATELET COUNT 232 10^3/uL (130-400); RED BLOOD COUNT 2.86 10^6/uL (4.35-5.85); RED CELL DISTRIBUTION WIDTH 15.3 % (10.0-14.5); WHITE BLOOD COUNT 9.6 10^3/uL (4.3-11.0)
[2018-09-26 06:54] LABS: HEMOGLOBIN 6.7 G/DL (11.5-16.0)
[2018-09-26] MEDS ORDERED: PRENATAL VITAMIN 1 EA TAB PO SCH (07:00)
[2018-09-26 08:00] VITALS: BP 131/74
[2018-09-26 08:18] LABS: ANISOCYTOSIS SLIGHT; BAND NEUTROPHILS 0 %; EOSINOPHILS % (MANUAL) 1 %; LYMPHOCYTES % (MANUAL) 27 %; MONOCYTES % (MANUAL) 11 %; NEUTROPHILS % (MANUAL) 61 %; POLYCHROMASIA SLIGHT
[2018-09-26] MEDS: DOCUSATE SODIUM 100 MG (COLACE) CAP PO SCH ×2 (08:30→14:15)
[2018-09-26] MEDS ORDERED: FERR325T18 PO (08:44)
[2018-09-26] MEDS ORDERED: IBUP-844 PO (08:44)
--- NOTE | 2018-09-26 08:46 | Discharge Inst-Women's Service ---
Discharge Inst-Women's Serv Depart Medication/Instructions New, Converted or Re-Newed RX: Call to Patients Pharmacy Consults/Follow Up Additional Follow Up: Yes (with Dr Hernandez in 6 weeks.) Activity Activity: Activity as Tolerated Driving Instructions: No Driving for 2 Weeks Nothing Inside Vagina: No [place] (for 6 weeks.) Diet Discharge Diet: Regular Diet Return to The Hospital For: as below Symptoms to Report to : Bleeding Excessive, Fever Over 101 Degrees F, Vaginal Discharge Foul be sure to take your iron pills twice daily with food for the next 6 weeks. For Any Problems or Questions: Contact Your Physician CHRISSIE HERNANDEZ MD Sep 26, 2018 08:46
--- NOTE | 2018-09-26 08:53 | Discharge Summary ---
Diagnosis/Chief Complaint Date of Admission Sep 24, 2018 at 19:13 Date of Discharge September 26, 2018 Admission Diagnosis Admission Diagnosis 1. Intrauterine at term, 40 weeks Discharge Diagnosis 1. Intrauterine at term, 40 weeks 2. Anemia due to hemorrhage Chief Complaint/HPI Chief Complaint/HPI 22 yo G2 now T2 who presented to labor and delivery on September 24, 2018 for induction of labor. Patient was noted to be at 40 weeks gestation Her care was essentially unremarkable. She did receive her care through [facility]. Discharge Summary-OBS Procedures 1. Epidural per anesthesia 2. 3. Repair of MLE Discharge Physical Examination Allergies: Coded Allergies: Penicillins (Verified Allergy, Intermediate, Swelling, 08/28/17) latex (Verified Allergy, Intermediate, RASH, 08/28/17) Vitals & I&Os Intake and Output 09/26/18 00:00 Intake Total 1500 ml Output Total 110 ml Balance 1390 ml Vital Sign - Last 12Hours Date Time Temp Pulse Resp B/P (MAP) Pulse Ox O2 Delivery O2 Flow Rate FiO2 09/26/18 04:23 98.7 74 18 122/68 (86) 98 Room Air 09/25/18 11:02 10.00 General Appearance: No Acute Distress Respiratory: Clear to Auscultation Cardiovascular: Regular Rate Abdominal: Soft (with uterus firm) Hospital Course patient was admitted during the evening of September 24, 2018 and underwent Cervidil cervical ripening. Patient tolerated the procedure well and began a contraction pattern. At 0700 she underwent amniotomy with clear fluid noted. She continued to contract requiring low-dose Pitocin She required epidural per anesthesia for pain control. Ultimately she went on to completion. Patient delivered a term viable female with Apgars of 9 at 1 minute and 9 at 5 minutes. She had a midline episiotomy. She was also noted to have hemorrhage in this was noted after placenta delivered. At the time her blood loss was marked at 700 cc but later nurse had calculated 1500. There was also a large clot noted. Her midline episiotomy had been repaired with 3-0 Vicryl. Her predelivery hemoglobin was 9.6. 2 hours following delivery her hemoglobin was 7.9. Patient was given routine care orders. Extra iron was given as part of her medications. Her hemoglobin in the morning of September 26, 2018 was 6.7. Patient was noted to be asymptomatic with regard to her low hemoglobin. She was without dizziness. Her blood pressure and vital signs remain stable. She was tolerating regular diet and was without any shortness of breath. She was felt ready for dismissal during the late morning of September 26, 2018. She was given prescription for extra iron which she will take 325 mg twice a day for the next 6 weeks. She will follow-up in 6 weeks with myself at [facility]. Labs Laboratory Tests 09/25/18 13:10: Hemoglobin 7.9L, Hematocrit 25L 09/26/18 06:32: Hemoglobin 6.7*L, Hematocrit 22L, White Blood Count 9.6, Red Blood Count 2.86L, Mean Corpuscular Volume 77L, Mean Corpuscular Hemoglobin 23L, Mean Corpuscular Hemoglobin Concent 31L, Red Cell Distribution Width 15.3H, Platelet Count 232, Mean Platelet Volume 12.4H, Neutrophils (%) (Auto) 64, Lymphocytes (%) (Auto) 26 , Monocytes (%) (Auto) 9, Eosinophils (%) (Auto) 1, Basophils (%) (Auto) 0, Neutrophils # (Auto) 6.1, Lymphocytes # (Auto) 2.5, Monocytes # (Auto) 0.9, Eosinophils # (Auto) 0.1, Basophils # (Auto) 0.0, Neutrophils % (Manual) 61, Lymphocytes % (Manual) 27, Monocytes % (Manual) 11, Eosinophils % (Manual) 1, Band Neutrophils 0, Polychromasia SLIGHT, Anisocytosis SLIGHT Discharge Instructions to patient/family Please see electronic discharge instructions given to patient. Discharge Medications Reviewed and agree with Discharge Medication list on patient's Discharge Instruction sheet Clinical Quality Measures DVT/VTE Risk/Contraindication: Risk Factor Score Per Nursin RFS Level Per Nursing on Admit: 1=Low/No VTE PPX CHRISSIE HERNANDEZ MD Sep 26, 2018 08:53
[2018-09-26] MEDS ORDERED: FERROUS SULF 325 MG (IRON) TAB PO SCH (09:00)
[2018-09-26 14:15] VITALS: BP 120/82
--- NOTE | 2018-09-26 16:14 | Anesthesia-Regional Post-Op ---
Regional Patient Condition Mental Status: Alert, Oriented x3 Circulation: Same as Pre-Op Headache: Absent Sensation: Full Recovery Motor Block: Absent Post Op Complications Complications None Follow Up Care/Instructions Patient Instructions None needed. Anesthesia/Patient Condition Patient is doing well, no complaints, stable vital signs, no apparent adverse anesthesia problems. No complications reported per nursing. LIZETTE VILLAGOMEZ CRNA Sep 26, 2018 16:14
[2018-09-26 17:31] VITALS: BP 120/82
== END 2018-09-26 17:24 | disposition home or self-care (01) | DRG 806 ==
LOC: LDRP 19:13
PROVIDERS: ADMIT Family Medicine; ATTEND Family Medicine
PROC: 3E0P7GC Introduction of Other Therapeutic Substance into Female Reproductive, Via Natural or Artificial Opening (ICD-10-PCS; 2018-09-24)
PROC: 10E0XZZ Delivery of Products of Conception, External Approach (ICD-10-PCS; principal; 2018-09-25)
PROC: 0W8NXZZ Division of Female Perineum, External Approach (ICD-10-PCS; 2018-09-25)
DX: O72.1 Other immediate postpartum hemorrhage (principal); O90.81 Anemia of the puerperium; D62 Acute posthemorrhagic anemia; Z37.0 Single live birth; Z3A.40 40 weeks gestation of pregnancy
CPT/HCPCS: 36415; 81000; 85007; 85014; 85018; 85025; 85027; 86850; 86900; 86901; 87088; 88307

== ENCOUNTER → 2019-09-16 | Outpatient (CLI) | payer MEDICAID ==
[~2019-09-16] MED LIST changes: +FERR325T18 PO; +IBUP-844 PO
--- NOTE | 2019-09-16 15:07 | Diagnostic Imaging Report ---
INDICATION: Second trimester . TECHNIQUE: Multiple real-time grayscale images were obtained over the gravid uterus. COMPARISON: None during this . FINDINGS: A single live intrauterine fetus is seen measuring 31 weeks 2 days in size by composite measurements. Fetus is in cephalic presentation. Amniotic fluid is qualitatively normal. Placenta is posterior and grade 2 with no evidence of previa. heart rate is 133 bpm. survey shows normal-appearing kidneys, bladder, and stomach. Normal-appearing intracranial ventricles are noted. Four-chamber heart view and three-vessel cord were noted. spine appears normal. Cord insertion is not well seen. The lower extremities are not well seen. Cervical length is 4.2 cm. Sonographic EDC is 11/16/2019. Biometrical measurements are as follows: Biparietal 7.95 cm, age 32 weeks 0 days. Head circumference 28.78 cm, age 31 weeks 5 days. Abdominal circumference 25.74 cm, age 30 weeks 0 days. Femur length 5.93 cm, age 31 weeks 0 days. Sonographic estimate age: 31 weeks 2 days. Sonographic estimated date of delivery: 11/16/19. Estimated Weight: 1595 gm (+/- 233 gm). LMP percentile: NA, unknown%. heart rate: 133 beats per minute. number: 1 of 1. IMPRESSION: Single live intrauterine fetus measuring 31 weeks 2 days in size. survey shows no detectable abnormality with some limitation as above. Dictated by: Dictated on workstation # [id number]
== END ==
LOC: RAD 10:55
PROVIDERS: ATTEND Family Medicine
DX: Z34.93 Encounter for supervision of normal pregnancy, unspecified, third trimester (principal); Z3A.31 31 weeks gestation of pregnancy
CPT/HCPCS: 76805

== ENCOUNTER 2019-11-16 06:34 | Inpatient (IN) | payer MEDICAID ==
[2019-11-16] VITALS (55 sets, daily range): BP systolic 112–152; BP diastolic 55–104
[~2019-11-16] VITALS: Ht 172.7 cm; Wt 94.1 kg
--- NOTE | 2019-11-16 06:45 | NUR ---
DARRYN PENG presented to unit via AMBULATION from ED, accompanied by s.o. for induction of labor. DARRYN PENG weighed, gowned, voided, and to bed. EFHM and TOCO applied, VS taken. DARRYN PENG oriented to bed controls, call light, TV, heat, and A/C controls.
[2019-11-16] MEDS ORDERED: MINERAL OIL CONCENTRATE 99.9% 15 ML UDC TOP PRN (07:00)
[2019-11-16 07:04] LABS: BASOPHILS % (AUTO) 0 % (0-10); EOSINOPHILS # (AUTO) 0.1 10^3/uL (0.0-0.3); EOSINOPHILS % (AUTO) 1 % (0-10); HEMATOCRIT 31 % (35-52); HEMOGLOBIN 9.8 G/DL (11.5-16.0); LYMPHOCYTES # (AUTO) 1.7 X 10^3 (1.0-4.0); LYMPHOCYTES % (AUTO) 19 % (12-44); MEAN CORPUSCULAR HEMOGLOBIN 24 PG (25-34); MEAN CORPUSCULAR HGB CONC 32 G/DL (32-36); MEAN CORPUSCULAR VOLUME 74 FL (80-99); MEAN PLATELET VOLUME 11.7 FL (7.4-10.4); MONOCYTES # (AUTO) 0.8 X 10^3 (0.0-1.0); MONOCYTES % (AUTO) 9 % (0-12); NEUTROPHILS # (AUTO) 6.2 X 10^3 (1.8-7.8); NEUTROPHILS % (AUTO) 71 % (42-75); PLATELET COUNT 334 10^3/uL (130-400); RED CELL DISTRIBUTION WIDTH 17.3 % (10.0-14.5); WHITE BLOOD COUNT 8.7 10^3/uL (4.3-11.0)
[2019-11-16] MEDS: D5 LR IV SOLUTION 1,000 ML IV SCH ×2 (07:14→15:22)
--- NOTE | 2019-11-16 07:18 | History & Physical-OB ---
OB - Chief Complaint & HPI Date/Time Date of Admission: Date of Admission: Nov 16, 2019 at 06:34 Date seen by a Provider: Nov 16, 2019 Time Seen by a Provider: 07:20 Chief Complaint/History OB-Reason for Admission/Chief: Induction of Labor Hx : 3 Hx Para: 2 Expected Date of Delivery: Nov 16, 2019 Gestational Age in Weeks: 40 Gestational Age in Days: 0 Admission Nurse Assessment Rev: Yes History of Labs GBS negative Allergies and Home Medications Allergies Coded Allergies: Penicillins (Verified Allergy, Intermediate, Swelling, 08/28/17) latex (Verified Allergy, Intermediate, RASH, 08/28/17) Home Medications Vit No.124/Iron/FA 1 Each Tablet, 1 EACH PO DAILY, (Reported) Patient Home Medication List Home Medication List Reviewed: Yes OB - History Hx of Present Care: Yes Ultrasounds: Normal mid trimester US Obstetrical Complications: None Medical Complications: None Delivery History Adverse Rxn to Tranfusion: No Patient Past Medical History no chronic medical problems OB - Admission Exam Physical Exam HEENT: Moist Membranes Heart: Rhythm Normal Lungs: Clear Abdomen: Gravid Cervical Dilatation: 2cm Effacement: 50% Station: -3 Membranes: Intact Heart Rate: 140's Accelerations: Accelerations Present Short Term Variability: Present Contractions on Admission: >10 Minutes Apart Intensity: Mild Longoria Scoring Tool (Modified) Dilation (cm): 1-2cm (1) Effacement (%): 31-51% (1) Descent/Station: -3 (0) Cervix Consistency: Medium(1) Cervix Position: Middle/Mid-Position (1) Add 1 point for: Each previous vaginal delivery (1) Longoria Score: 6 Labs Laboratory Tests Test 11/16/19 06:53 Range/Units White Blood Count 8.7 4.3-11.0 10^3/uL Red Blood Count 4.17 L 4.35-5.85 10^6/uL Hemoglobin 9.8 L 11.5-16.0 G/DL Hematocrit 31 L 35-52 % Mean Corpuscular Volume 74 L 80-99 FL Mean Corpuscular Hemoglobin 24 L 25-34 PG Mean Corpuscular Hemoglobin Concent 32 32-36 G/DL Red Cell Distribution Width 17.3 H 10.0-14.5 % Platelet Count 334 130-400 10^3/uL Mean Platelet Volume 11.7 H 7.4-10.4 FL Neutrophils (%) (Auto) 71 42-75 % Lymphocytes (%) (Auto) 19 12-44 % Monocytes (%) (Auto) 9 0-12 % Eosinophils (%) (Auto) 1 0-10 % Basophils (%) (Auto) 0 0-10 % Neutrophils # (Auto) 6.2 1.8-7.8 X 10^3 Lymphocytes # (Auto) 1.7 1.0-4.0 X 10^3 Monocytes # (Auto) 0.8 0.0-1.0 X 10^3 Eosinophils # (Auto) 0.1 0.0-0.3 10^3/uL Basophils # (Auto) 0.0 0.0-0.1 10^3/uL OB - Assessment/Plan/Diagnosis Assessment Assessment: induction of labor (at term 40 weeks gestation) Admission Dx IUP at term 40 weeks gestation Admission Status: Inpatient Order (span 2 midnights) Reason for Inpatient Admission: induction of labor at 40 weeks gestation Plan Plan: Induction Induction Method: AROM Other Plan desires epidural CHRISSIE HERNANDEZ MD Nov 16, 2019 07:18
[2019-11-16] MEDS ORDERED: OXYTOCIN/NORMAL SALINE 500 ML IV SCH ×2 (07:33→16:24)
--- NOTE | 2019-11-16 09:48 | NUR ---
CM/SS visited with patient due to consult request from RN. Plan: The patient plans to return home with baby and (Xi Corona). The patient and reported that they have everything that they need at home for the baby such as crib, clothes, and diapers. Patient has resources in place such as [employer], WIC, and Medicaid. Summary: The patient was in bed with at bedside holding her hand. They have been for 3 years. The patient is currently in labor but was very willing to talk. The patient states she is delivering her third child. Resources that are already in place are [employer] (the workers name is Mariah), WIC, and Medicaid. The patient verbalized that she does not have family support on her side and has a poor relationship with her mother. Her father this last March, the patient verbalized that she was very close with him. The patient does have a good support system in place with her husbands family especially his mother, according to the . The patient and have stated they do not have any needs for baby in the home currently. This worker told the patient that if she had any questions or needs to let the nurse know to notify SS. CM/SS informed the patients nurse of what resources were in place. Will continue to follow in case needs arise.
[2019-11-16] MEDS ORDERED: ONDANSETRON 4 MG/2 ML (SDV) Z0FRAN ONE (10:13)
[2019-11-16] MEDS ORDERED: ONDANSETRON 4 MG/2 ML (SDV) Z0FRAN IVP PRN (10:30)
[2019-11-16] MEDS ORDERED: MEPIVACAINE (CARBOCAINE) 2% 50 ML VIAL ONE (13:53)
[2019-11-16] MEDS ORDERED: CATHETER FLUSH 10 ML SYR IV SCH ×2 (14:00→22:00)
[2019-11-16] MEDS ORDERED: SUFENTA 0.6MCG/ML BUPIVA 0.125 100 ML ONE (14:39)
[2019-11-16] MEDS ORDERED: BUPIVACAINE 0.25% 30 ML (SENSORCAINE) VIAL ONE (15:00)
[2019-11-16] MEDS ORDERED: fentaNYL INJECTION 100 MCG/2 ML AMP ONE (15:00)
--- NOTE | 2019-11-16 15:05 | NUR ---
1505 Andrew VILLAGOMEZ CRNA here for epidural placement. Procedure explained, consent reviewed and signed by anesthesia. Questions answered to patient's satisfaction. Time out taken to verify correct patient/procedure. 1506 Patient up to side of bed, assisted into sitting position. 1507 Betadine prep done x3 and sterile drape applied. 1509 Local done, see anesthesia record. 1510 Test dose given, see anesthesia record for drug and dosage. 1511 Test dose #2 given, see anesthesia record for drug and dosage. Epidural catheter secured in place. Epidural placement complete. 1515 Assisted back into bed, monitors adjusted. Epidural dosed, see anesthesia record. Epidural of Sufenta/Bupvicaine @12cc/hr stated per pump. Patient tolerated procedure well.
[2019-11-16] MEDS ORDERED: LACTATED RINGERS 1,000 ML IV SCH (15:32)
[2019-11-16] MEDS ORDERED: diphenhydrAMINE 50 MG/ML INJ (BENADRYL) IV PRN (15:45)
[2019-11-16] MEDS ORDERED: METOCLOPRAMIDE INJ 10 MG/2 ML (REGLAN) IV PRN (15:45)
[2019-11-16] MEDS ORDERED: EPIDURAL (SUFENTA 0.6MCG/ML BUPIVA 0.125%) 100 ML BAG EPI PRN (15:45)
[2019-11-16] MEDS ORDERED: ONDANSETRON 4 MG/2 ML (SDV) Z0FRAN IV PRN (15:45)
[2019-11-16] MEDS ORDERED: NALOXONE 0.4 MG/ML 1 ML (NARCAN) VIAL IV PRN ×2 (15:45)
--- NOTE | 2019-11-16 16:00 | NUR ---
PITOCIN INFUSING @ 125 ML/HR/PUMP AFTER PLACENTA DELIVERY. USING CURRENT PITOCIN BAG THAT IS ALREADY HUNG.
--- NOTE | 2019-11-16 16:24 | OB Labor & Delivery Record ---
L&D History Date of Service Date of Service: Nov 16, 2019 History Expected Date of Delivery: Nov 14, 2019 Gestational Age in Weeks: 40 Hx : 3 Hx Para: 3 Complications Events: Routine care Operative Indications (Cesarea: N/A-Vaginal Delivery Intrapartal Events: None L&D Stage1 Stage One Onset of Labor - Date: Nov 16, 2019 Onset of Labor - Time: 07:20 Monitors and Tracing Monitor Mode: Internal Heart Rate: 130 Monitor Accelerations: Uniform Monitor Decelerations: None Station: -2 Mcfp Variability: Average (6-10) Short Term Variability: Present Presentation: Vertex Vital Signs VS - Last 72 Hours, by Label 11/16/19 11/16/19 11/16/19 11/16/19 07:16 07:44 07:51 08:06 Temp 35.3 Pulse 77 75 77 Resp 18 18 18 B/P (MAP) 129/81 (97) 127/85 (99) 133/78 (96) O2 Delivery Room Air Room Air Room Air 11/16/19 11/16/19 11/16/19 11/16/19 08:21 08:37 08:50 09:05 Pulse 71 75 68 74 Resp 18 18 18 18 B/P (MAP) 136/97 (110) 143/80 (101) 136/80 (98) 137/82 (100) O2 Delivery Room Air Room Air Room Air Room Air 11/16/19 11/16/19 11/16/19 11/16/19 09:21 09:36 09:48 09:51 Temp 35.5 Pulse 72 71 68 Resp 18 18 18 B/P (MAP) 131/83 (99) 134/87 (103) 144/90 (108) O2 Delivery Room Air Room Air Room Air 11/16/19 11/16/19 11/16/19 11/16/19 10:06 10:20 10:37 10:51 Pulse 67 64 63 79 Resp 18 18 18 18 B/P (MAP) 131/74 (93) 131/74 (93) 135/78 (97) 138/74 (95) O2 Delivery Room Air Room Air Room Air Room Air 11/16/19 11/16/19 11/16/19 11/16/19 11:05 11:21 11:37 11:51 Temp 35.9 Pulse 62 64 78 86 Resp 18 18 18 18 B/P (MAP) 129/68 (88) 120/69 (86) 123/66 (85) 117/66 (83) O2 Delivery Room Air Room Air Room Air Room Air 11/16/19 11/16/19 11/16/19 11/16/19 12:02 12:04 12:21 12:36 Temp 35.9 Pulse 83 76 87 Resp 18 18 18 B/P (MAP) 122/71 (88) 129/66 (87) 125/66 (85) O2 Delivery Room Air Room Air Room Air 11/16/19 11/16/19 11/16/19 11/16/19 12:51 13:06 13:23 13:38 Temp 36.2 35.9 Pulse 69 87 108 76 Resp 18 18 18 18 B/P (MAP) 114/60 (78) 139/82 (101) 130/79 (96) 144/80 (101) O2 Delivery Room Air Room Air Room Air Room Air 11/16/19 11/16/19 11/16/19 11/16/19 13:51 14:07 14:21 14:36 Pulse 98 82 86 96 Resp 18 18 18 18 B/P (MAP) 144/87 (106) 119/59 (79) 138/76 (96) 143/73 (96) O2 Delivery Room Air Room Air Room Air Room Air 11/16/19 11/16/19 11/16/19 11/16/19 14:50 15:07 15:11 15:14 Temp 36.3 Pulse 99 101 102 90 Resp 18 18 18 18 B/P (MAP) 139/66 (90) 128/76 (93) 152/72 (98) 139/79 (99) O2 Delivery Room Air Room Air Room Air Room Air 11/16/19 11/16/19 11/16/19 11/16/19 15:17 15:20 15:23 15:26 Pulse 80 92 98 69 Resp 18 18 18 18 B/P (MAP) 131/76 (94) 138/104 (115) 133/73 (93) 135/75 (95) Pulse Ox 96 92 95 O2 Delivery Room Air Room Air Room Air Room Air Signs of Distress by FHT Signs of Distress no Rupture of Membranes Spontaneous Ruture of Membrane: No Amniotic Membrane Rupture Time: 0720 Induction/Anesthesia Epidural Cath Placement - Time: 1510 L&D Stage2 Stage Two Stage II Date: Nov 16, 2019 Stage II Time: 15:56 Monitors and Tracing Monitor Mode: Internal Heart Rate: 130 Monitor Accelerations: Uniform Monitor Decelerations: Early Mcfp Variability: Average (6-10) Short Term Variability: Present Position: Left Occiput Anterior Presentation: Vertex Signs of Distress by FHT Signs of Distress no Cord Descript/Complications Cord Vessel Description: 3 Vessels Delivery Type Delivery Method: Spontaneous Vaginal Anterior Shoulder: Left Episiotomy/Perineal Laceration Laceraction(s)/Extensions: No Condition of Infant Delivery 1 minute Comment: 8 5 minute Comment: 8 Condition of Condition of Infant: Living Exam: No Observed Abnormalities Resuscitation Resuscitation: N/A - Spontaneous Resp L&D Stage3 Stage Three Stage III Date: Nov 16, 2019 Stage III Time: 16:00 Pictocin Pitocin Administration mu/min: 8 Pitocin ml/hr: 8 Pitocin Administration Comment: 0948 PITOCIN INCREASED. Placenta Delivery Placenta Delivery: Spontaneous Delivery Summary Summary Estimated blood loss (mL): 250 Condition of Delivery Examined: Cervix Examined Post Hemorrhage: No Intervention Required none CHRISSIE HERNANDEZ MD Nov 16, 2019 16:24
[2019-11-16] MEDS ORDERED: BENZOCAINE/MENTHOL (DERMOPLAST) 56 ML CAN TP PRN (16:30)
[2019-11-16] MEDS ORDERED: MEASLES,MUMPS,RUBELLA 1 EA INJ SQ ONE (16:30)
[2019-11-16] MEDS ORDERED: WITCH HAZEL(TUCKS) 40 EA JAR TOP PRN (16:30)
[2019-11-16] MEDS ORDERED: TETANUS,DIPTH,PERTUSS P/F (BOOSTRIX) 0.5 ML VIAL IM ONE (16:30)
--- NOTE | 2019-11-16 18:40 | NUR ---
REFER TO LABOR FLOW SHEET.
[2019-11-16] MEDS: IBUPROFEN 600 MG (MOTRIN) TAB PO SCH (20:28)
[2019-11-16] MEDS: DOCUSATE SODIUM 100 MG (COLACE) CAP PO SCH (20:28)
[2019-11-17 00:25] VITALS: BP 125/65
[2019-11-17] MEDS: ACETAMINOPHEN 500 MG TAB (TYLENOL) PO SCH ×2 (00:26→06:40)
[2019-11-17] MEDS: IBUPROFEN 600 MG (MOTRIN) TAB PO SCH ×3 (00:26→12:41)
[2019-11-17 04:00] VITALS: BP 122/58
[2019-11-17 06:47] LABS: BASOPHILS % (AUTO) 0 % (0-10); EOSINOPHILS # (AUTO) 0.1 10^3/uL (0.0-0.3); EOSINOPHILS % (AUTO) 1 % (0-10); HEMATOCRIT 28 % (35-52); HEMOGLOBIN 8.8 G/DL (11.5-16.0); LYMPHOCYTES % (AUTO) 23 % (12-44); MEAN CORPUSCULAR HEMOGLOBIN 24 PG (25-34); MEAN CORPUSCULAR HGB CONC 31 G/DL (32-36); MEAN CORPUSCULAR VOLUME 75 FL (80-99); MEAN PLATELET VOLUME 12.1 FL (7.4-10.4); MONOCYTES # (AUTO) 0.8 X 10^3 (0.0-1.0); MONOCYTES % (AUTO) 9 % (0-12); NEUTROPHILS # (AUTO) 5.8 X 10^3 (1.8-7.8); NEUTROPHILS % (AUTO) 67 % (42-75); PLATELET COUNT 302 10^3/uL (130-400); RED CELL DISTRIBUTION WIDTH 17.2 % (10.0-14.5); WHITE BLOOD COUNT 8.6 10^3/uL (4.3-11.0)
[2019-11-17] MEDS ORDERED: PRENATAL VITAMIN 1 EA TAB PO SCH (07:00)
[2019-11-17 08:49] VITALS: BP 123/75
[2019-11-17] MEDS: DOCUSATE SODIUM 100 MG (COLACE) CAP PO SCH (08:49)
--- NOTE | 2019-11-17 08:49 | NUR ---
AM shift assessment completed and vital signs obtained, see interventions. Plan of care reviewed with patient. Patient verbalizes understanding and questions answered. Scheduled PNV and Colace PO given. Shower supplies provided. Saline lock DC'd, tip intact. Band aid applied to site.
[2019-11-17 12:41] VITALS: BP 122/64
--- NOTE | 2019-11-17 15:05 | Discharge Summary ---
Diagnosis/Chief Complaint Date of Admission Nov 16, 2019 at 06:34 Date of Discharge November 17, 2019 Discharge Date: Nov 17, 2019 Discharge Time: 18:00 Admission Diagnosis Admission Diagnosis 1. Intrauterine at 40 weeks gestation 2. Anemia iron deficiency in Discharge Diagnosis 1. Intrauterine at 40 weeks gestation 2. Anemia iron deficiency in Reason Hospital Visit 23-year-old 3 now term 3 female who presented to labor and delivery in the morning of November 16, 2019 for induction of labor at 40 weeks gestation. Her due date based upon 20 week ultrasound was November 16, 2019. Her care was essentially unremarkable. Her GBS status at 36 weeks gestation was negative. Discharge Summary-OBS Procedures 1. Epidural per anesthesia 2. Spontaneous vaginal delivery Discharge Physical Examination Allergies: Coded Allergies: Penicillins (Verified Allergy, Intermediate, Swelling, 08/28/17) latex (Verified Allergy, Intermediate, RASH, 08/28/17) Vitals & I&Os Vital Signs Date Time Temp Pulse Resp B/P (MAP) Pulse Ox O2 Delivery O2 Flow Rate FiO2 11/17/19 12:41 36.2 63 16 122/64 (83) 97 Room Air General Appearance: Alert, Oriented X3 Respiratory: Clear to Auscultation Cardiovascular: Regular Rate Abdominal: Normal Bowel Sounds, Soft Psych/Mental Status: Mental Status NL Hospital Course Was the Problem List Reviewed?: Yes Patient was admitted in the morning of November 16, 2020 for induction of labor. Her induction was by artificial rupture of membranes. Patient was dilated to 2 cm upon presentation and had occasional contraction. Fluid was noted to be clear at time of rupture membranes. scalp electrode was placed. Strip remained reactive throughout the course of labor. She did require epidural for pain control at 7-8 cm dilated. Ultimately she went on to completion and delivered over an intact perineum a term viable female. Delivery was accomplished on November 16, 2019 at 1556. Infant received Apgars of 8 at 1 minute and 8 at 5 minutes. Following delivery patient underwent routine care orders. She had no complications during the remainder of hospital stay. She had hemoglobin the day after delivery of 8.8 and this was compared to 9.8 on admission. She was asymptomatic with regard to dizziness or lightheadedness. Patient tolerated regular diet and was felt ready for dismissal during the evening of November 17, 2019. She will follow-up with Dr. Hernandez in 6 weeks. Discharge Instructions to patient/family Please see electronic discharge instructions given to patient. Discharge Medications Reviewed and agree with Discharge Medication list on patient's Discharge Instruction sheet Clinical Quality Measures DVT/VTE Risk/Contraindication: Risk Factor Score Per Nursin RFS Level Per Nursing on Admit: 1=Low/No VTE PPX CHRISSIE HERNANDEZ MD Nov 17, 2019 15:05
--- NOTE | 2019-11-17 15:07 | Discharge Inst-Women's Service ---
Discharge Inst-Women's Serv Depart Medication/Instructions New, Converted or Re-Newed RX: Other Instructions May take deyr-lzr-rivhgpt ibuprofen 2 or 3 200 mg tablets every 6 hours as needed for cramps. Problems Reviewed?: Yes Consults/Follow Up Additional Follow Up: Yes (With Dr. Hernandez in [address] [facility]) Activity Driving Instructions: No Driving for 1 Week Nothing Inside Vagina: No [place] (For 6 weeks) Diet Discharge Diet: Regular Diet Return to The Hospital For: As below Symptoms to Report to : Swelling Increased, Bleeding Excessive, Pain Increased, Fever Over 101 Degrees F, Vaginal Discharge Foul For Any Problems or Questions: Contact Your Physician CHRISSIE HERNANDEZ MD Nov 17, 2019 15:07
--- NOTE | 2019-11-17 17:27 | NUR ---
Discharge instructions and medications reviewed with patient both written and verbally. Patient verbalizes understanding and questions answered.
--- NOTE | 2019-11-17 17:29 | Anesthesia-Regional Post-Op ---
Regional Patient Condition Mental Status: Alert, Oriented x3 Circulation: Same as Pre-Op Headache: Absent Sensation: Full Recovery Motor Block: Absent Post Op Complications Complications None Follow Up Care/Instructions Patient Instructions None needed. Anesthesia/Patient Condition Patient is doing well, no complaints, stable vital signs, no apparent adverse anesthesia problems. No complications reported per nursing. ABDI WOLF CRNA Nov 17, 2019 17:29
--- NOTE | 2019-11-17 18:16 | NUR ---
Patient discharged at this time and ambulated down to awaiting private vehicle accompanied by this RN. No signs or symptoms of distress noted.
== END 2019-11-17 18:16 | disposition home or self-care (01) | DRG 807 ==
LOC: LDRP 06:34
PROVIDERS: ADMIT Family Medicine; ATTEND Family Medicine
PROC: 10E0XZZ Delivery of Products of Conception, External Approach (ICD-10-PCS; principal; 2019-11-16)
PROC: 10907ZC Drainage of Amniotic Fluid, Therapeutic from Products of Conception, Via Natural or Artificial Opening (ICD-10-PCS; 2019-11-16)
DX: O99.03 Anemia complicating the puerperium (principal); D50.9 Iron deficiency anemia, unspecified; Z3A.40 40 weeks gestation of pregnancy; Z37.0 Single live birth
CPT/HCPCS: 36415; 85025; 86850; 86900; 86901

== ENCOUNTER 2022-05-11 19:42 | Emergency (ER) | payer MEDICAID ==
[2022-05-11 21:00] VITALS: BP 118/87
== END 2022-05-11 21:45 | disposition home or self-care (01) ==
LOC: EDUNIT# 19:42 → ER 19:43
DX: O26.891 Other specified pregnancy related conditions, first trimester (principal); R10.2 Pelvic and perineal pain; Z3A.01 Less than 8 weeks gestation of pregnancy
CPT/HCPCS: 99281

== ENCOUNTER 2022-05-11 21:41 | Outpatient (CLI) | payer MEDICAID ==
[~2022-05-11] VITALS: Ht 175 cm; Wt 106.5 kg
[2022-05-11 21:50] VITALS: BP 134/77
[2022-05-11 22:15] VITALS: BP 134/79
[2022-05-11] MEDS ORDERED: BETAMETHASONE ACE/NA PHOS 6 MG/ML (CELESTONE SOLUSPAN) IM SCH (22:15)
[2022-05-11] MEDS ORDERED: NS IV 1000 ML 1,000 ML IV SCH (22:15)
[2022-05-11] MEDS ORDERED: NS IV 1000 ML 1,000 ML ONE (22:21)
[2022-05-11 22:23] LABS: BILIRUBIN,URINE 1+ (NEGATIVE); CLARITY,URINE CLEAR; COLOR,URINE BROWN; GLUCOSE, URINE (UA) TRACE (NEGATIVE); KETONES,URINE 3+ (NEGATIVE); LEUKOCYTE ESTERASE ,URINE 3+ (NEGATIVE); NITRITE,URINE NEGATIVE (NEGATIVE); PROTEIN,URINE 1+ (NEGATIVE)
[2022-05-11] MEDS ORDERED: FLUCONAZOLE 150 MG TABLET (ED ONLY) ONE (22:24)
[2022-05-11 22:30] VITALS: BP 134/77
[2022-05-11 22:30] LABS: BACTERIA,URINE LARGE /HPF
[2022-05-11 22:45] VITALS: BP 130/75
[2022-05-12] MEDS ORDERED: fluCOnazole (DIFLUCAN) 100 MG TAB PO SCH (09:00)
--- NOTE | 2022-05-13 08:20 | Physician Query-Final Dx ---
TAMIE,05/13/22 0820: Clinic Account Progress/Dx Physician Query: Please give diagnosis Please include # weeks gestation Date of Service May 11, 2022 at 21:41 GEORGIE DIAZ DO 05/13/22 1003: Clinic Account Progress/Dx DIAGNOSIS: Diagnosis No care 24 weeks UTI Uterine cramping TAMIE,NovMay 13, 2022 08:20 GEORGIE DIAZ DO May 13, 2022 10:03
== END 2022-05-11 22:52 | disposition home or self-care (01) ==
LOC: WSo 21:41 → LDRP 21:42 → WSo 22:52
PROVIDERS: ATTEND Obstetrics & Gynecology
DX: O23.42 Unspecified infection of urinary tract in pregnancy, second trimester (principal); Z3A.24 24 weeks gestation of pregnancy
CPT/HCPCS: 81000; 87088; 99213

== ENCOUNTER 2022-06-13 06:05 | Inpatient (IN) | payer MEDICAID ==
[2022-06-13] VITALS (41 sets, daily range): BP systolic 106–149; BP diastolic 55–86
[~2022-06-13] VITALS: Ht 173 cm; Wt 106.3 kg
[2022-06-13] MEDS ORDERED: D5 LR IV SOLUTION 1,000 ML IV SCH (06:15)
[2022-06-13] MEDS ORDERED: MINERAL OIL 30 ML TOP PRN (06:15)
[2022-06-13] MEDS ORDERED: D5 LR IV SOLUTION 1,000 ML IV ONE (06:31)
[2022-06-13 06:37] LABS: BILIRUBIN,URINE NEGATIVE (NEGATIVE); CLARITY,URINE CLOUDY; COLOR,URINE YELLOW; GLUCOSE, URINE (UA) NEGATIVE (NEGATIVE); KETONES,URINE NEGATIVE (NEGATIVE); LEUKOCYTE ESTERASE ,URINE TRACE (NEGATIVE); NITRITE,URINE NEGATIVE (NEGATIVE); PROTEIN,URINE 1+ (NEGATIVE)
[2022-06-13 06:37] LABS: BASOPHILS # (AUTO) 0.1 10^3/uL (0.0-0.1); BASOPHILS % (AUTO) 1 % (0-10); EOSINOPHILS # (AUTO) 0.3 10^3/uL (0.0-0.3); EOSINOPHILS % (AUTO) 3 % (0-10); HEMATOCRIT 35 % (35-52); HEMOGLOBIN 11.5 g/dL (11.5-16.0); LYMPHOCYTES % (AUTO) 20 % (12-44); MEAN CORPUSCULAR HEMOGLOBIN 28 pg (25-34); MEAN CORPUSCULAR HGB CONC 33 g/dL (32-36); MEAN CORPUSCULAR VOLUME 85 fL (80-99); MEAN PLATELET VOLUME 11.6 fL (9.0-12.2); MONOCYTES # (AUTO) 0.9 10^3/uL (0.0-1.0); MONOCYTES % (AUTO) 9 % (0-12); NEUTROPHILS # (AUTO) 6.6 10^3/uL (1.8-7.8); NEUTROPHILS % (AUTO) 66 % (42-75); PLATELET COUNT 335 10^3/uL (130-400)
--- NOTE | 2022-06-13 06:37 | History & Physical-OB ---
OB - Chief Complaint & HPI Date/Time Date of Admission: Date of Admission: Jun 13, 2022 at 06:05 Date seen by a Provider: Jun 13, 2022 Time Seen by a Provider: 06:35 Chief Complaint/History OB-Reason for Admission/Chief: Induction of Labor Hx : 4 Hx Para: 3 Expected Date of Delivery: Jun 07, 2022 Gestational Age in Weeks: 40 Gestational Age in Days: 6 Indication for induction: post dates Admission Nurse Assessment Rev: Yes History of Labs GBS status pending (late care) Allergies and Home Medications Allergies Coded Allergies: Penicillins (Verified Allergy, Intermediate, Swelling, 08/28/17) latex (Verified Allergy, Intermediate, RASH, 08/28/17) Patient Home Medication List Home Medication List Reviewed: Yes Vit No.124/Iron/FA ( Vitamin Tablet) 1 Each Tablet, 1 EACH PO DAILY, (Reported) Entered as Reported by: GATO VILLASENOR on 08/28/172013 OB - History Hx of Present Care: Yes (but late third trimester) Ultrasounds: Other (US at 40 weeks gestation) Obstetrical Complications: Other (mild PIH) Medical Complications: None Delivery History Adverse Rxn to Tranfusion: No Patient Past Medical History no chronic medical problems Social History/Family History 2nd Hand Smoke Exposure: No Immunizations Hepatitis A: Yes Hepatitis B: Yes OB - Admission Exam Physical Exam HEENT: Moist Membranes Heart: Rhythm Normal Lungs: Clear Abdomen: Gravid Cervical Dilatation: 2cm Effacement: 50% Station: -2 Membranes: Intact Heart Rate: 130's Longoria Scoring Tool (Modified) Dilation (cm): 1-2cm (1) Effacement (%): 31-51% (1) Descent/Station: -2 (1) Cervix Consistency: Medium(1) Cervix Position: Middle/Mid-Position (1) Add 1 point for: Each previous vaginal delivery (1) Longoria Score: 8 OB - Assessment/Plan/Diagnosis Assessment Assessment: induction of labor (at 40w6d gestation based upon late US) Admission Dx 1. IUP at term 40w6d 2. Mild PIH (clinic recordings) Admission Status: Inpatient Order (span 2 midnights) Reason for Inpatient Admission: L&D Plan Plan: Induction Induction Method: AROM Other Plan -pitocin if necessary -GBS protochol with cleocin (penicillin allergy) CHRISSIE HERNANDEZ MD Jun 13, 2022 06:37
[2022-06-13 06:46] LABS: AMORPHOUS SEDIMENT,UR FEW AMOR URATES /LPF; BACTERIA,URINE FEW /HPF; SQUAMOUS EPITHELIAL CELL,UR 25-50 /HPF
[2022-06-13] MEDS: CLINDAMYCIN 900 MG/50 ML IVPB 50 ML IV SCH ×2 (06:47→14:37)
[2022-06-13] MEDS: OXYTOCIN PRE-MIX DRIP 500 ML IV SCH ×2 (07:24→15:54)
[2022-06-13] MEDS ORDERED: MEPIVACAINE (CARBOCAINE) 2% 50 ML VIAL ONE (11:54)
[2022-06-13] MEDS ORDERED: MEPIVACAINE (CARBOCAINE) 2% 20 ML VIAL INJ ONE (13:15)
[2022-06-13] MEDS ORDERED: MEPIVACAINE (CARBOCAINE) 2% 50 ML VIAL INJ ONE (13:30)
[2022-06-13] MEDS ORDERED: CATHETER FLUSH 10 ML SYR IV SCH ×2 (14:00→22:00)
--- NOTE | 2022-06-13 16:10 | OB Labor & Delivery Record ---
L&D History Date of Service Date of Service: Jun 13, 2022 History Expected Date of Delivery: Jun 07, 2022 Gestational Age in Weeks: 40 Hx : 4 Hx Para: 4 Complications Events: Routine care (2 visits) Operative Indications (Cesarea: N/A-Vaginal Delivery Intrapartal Events: None Other Complications received 2 doses of clindamycin since GBS status unknown L&D Stage1 Stage One Onset of Labor - Date: Jun 13, 2022 Onset of Labor - Time: 06:35 Monitors and Tracing Monitor Mode: Internal Heart Rate: 120 Monitor Accelerations: Uniform Monitor Decelerations: None Station: -2 Slubber Hand Variability: Average (6-10) Short Term Variability: Present Presentation: Vertex Vital Signs VS - Last 72 Hours, by Label 06/13/22 06/13/22 06/13/22 06/13/22 06:29 07:30 07:45 08:00 Temp 35.5 36.4 Pulse 103 96 93 85 Resp 20 20 20 20 B/P (MAP) 131/79 (96) 130/73 (92) 117/57 (77) Pulse Ox 98 98 98 98 O2 Delivery Room Air Room Air Room Air Room Air 06/13/22 06/13/22 06/13/22 06/13/22 08:15 08:30 08:45 09:00 Pulse 94 92 93 93 Resp 20 20 20 20 B/P (MAP) 121/59 (79) 123/73 (90) 123/81 (95) 119/68 (85) Pulse Ox 98 99 99 98 O2 Delivery Room Air Room Air Room Air Room Air 06/13/22 06/13/22 06/13/22 06/13/22 09:15 09:30 09:45 10:00 Pulse 98 97 87 86 Resp 20 20 20 20 B/P (MAP) 132/86 (101) 127/75 (92) 118/65 (82) 119/69 (86) Pulse Ox 98 99 99 98 O2 Delivery Room Air Room Air Room Air Room Air 06/13/22 06/13/22 06/13/22 06/13/22 10:15 10:30 10:45 11:00 Pulse 78 75 83 83 Resp 20 20 20 20 B/P (MAP) 106/57 (73) 113/57 (75) 127/57 (80) 122/57 (78) Pulse Ox 99 100 98 98 O2 Delivery Room Air Room Air Room Air Room Air 06/13/22 06/13/22 06/13/22 06/13/22 11:15 11:30 11:45 12:00 Temp 36.0 Pulse 87 80 100 98 Resp 20 20 20 20 B/P (MAP) 122/57 (78) 130/69 (89) 121/63 (82) 149/80 (103) Pulse Ox 98 99 O2 Delivery Room Air Room Air Room Air Room Air 06/13/22 06/13/22 06/13/22 06/13/22 12:15 12:30 12:45 13:00 Pulse 103 108 86 99 Resp 20 20 20 20 B/P (MAP) 130/62 (84) 130/63 (85) 137/69 (91) 133/78 (96) O2 Delivery Room Air Room Air Room Air Room Air Signs of Distress by FHT Signs of Distress no Rupture of Membranes Spontaneous Ruture of Membrane: No Amniotic Membrane Rupture Time: 0635 Amniotic Membrane Fluid Desc.: Clear L&D Stage2 Stage Two Stage II Date: Jun 13, 2022 Stage II Time: 15:25 Monitors and Tracing Monitor Mode: Internal Heart Rate: 120 Monitor Accelerations: Uniform Monitor Decelerations: None Half-Way Variability: Average (6-10) Short Term Variability: Present Position: Left Occiput Anterior Presentation: Vertex Signs of Distress by FHT Signs of Distress no Cord Descript/Complications Cord Vessel Description: 3 Vessels Delivery Type Infant Delivery Method: Spontaneous Vaginal Anterior Shoulder: Left Episiotomy/Perineal Laceration Laceraction(s)/Extensions: No Episiotomy Description: None, 1st degree (minor) Sutures Used: Vicryl Condition of Infant Delivery 1 minute Comment: 8 5 minute Comment: 9 Condition of Infant Condition of : Living Exam: No Observed Abnormalities Resuscitation Resuscitation: N/A - Spontaneous Resp L&D Stage3 Stage Three Stage III Date: Jun 13, 2022 Stage III Time: 15:30 Pictocin Pitocin Administration mu/min: 18 Pitocin ml/hr: 18 Pitocin Administration Comment: PITOCIN INCREASED PER PROTOCOL.. Placenta Delivery Placenta Delivery: Spontaneous Delivery Summary Summary Estimated blood loss (mL): 200 Condition of Delivery Examined: Cervix Examined Post Hemorrhage: No Intervention Required none MARY,CHRISSIE J MD Jun 13, 2022 16:10
[2022-06-13] MEDS ORDERED: BENZOCAINE/MENTHOL (DERMOPLAST) 56 ML CAN TP PRN (16:15)
[2022-06-13] MEDS ORDERED: WITCH HAZEL(TUCKS) 40 EA JAR TOP PRN (16:15)
[2022-06-13] MEDS ORDERED: TETANUS,DIPTH,PERTUSS P/F (BOOSTRIX) 0.5 ML VIAL IM ONE (16:15)
[2022-06-13] MEDS ORDERED: OXYTOCIN PRE-MIX DRIP 500 ML IV SCH (16:15)
[2022-06-13] MEDS ORDERED: MEASLES,MUMPS,RUBELLA 1 EA INJ SQ ONE (16:15)
[2022-06-13] MEDS ORDERED: NALOXONE 0.4 MG/ML 1 ML (NARCAN) VIAL IV PRN (16:15)
[2022-06-13] MEDS: IBUPROFEN 600 MG (MOTRIN) TAB PO SCH ×2 (17:38→23:53)
[2022-06-13] MEDS: ACETAMINOPHEN 500 MG TAB (TYLENOL) PO SCH ×2 (17:38→23:53)
[2022-06-13] MEDS: DOCUSATE SODIUM 100 MG (COLACE) CAP PO SCH (21:22)
[2022-06-14 03:58] VITALS: BP 125/75
[2022-06-14] MEDS: IBUPROFEN 600 MG (MOTRIN) TAB PO SCH ×2 (06:27→13:20)
[2022-06-14] MEDS: ACETAMINOPHEN 500 MG TAB (TYLENOL) PO SCH ×2 (06:27→13:20)
[2022-06-14 06:31] VITALS: BP 106/58
[2022-06-14] MEDS ORDERED: PRENATAL VITAMIN 1 EA TAB PO SCH (07:00)
[2022-06-14 07:22] LABS: BASOPHILS # (AUTO) 0.1 10^3/uL (0.0-0.1); BASOPHILS % (AUTO) 0 % (0-10); EOSINOPHILS # (AUTO) 0.2 10^3/uL (0.0-0.3); EOSINOPHILS % (AUTO) 1 % (0-10); HEMATOCRIT 32 % (35-52); HEMOGLOBIN 10.6 g/dL (11.5-16.0); LYMPHOCYTES # (AUTO) 2.8 10^3/uL (1.0-4.0); LYMPHOCYTES % (AUTO) 20 % (12-44); MEAN CORPUSCULAR HEMOGLOBIN 29 pg (25-34); MEAN CORPUSCULAR HGB CONC 33 g/dL (32-36); MEAN CORPUSCULAR VOLUME 87 fL (80-99); MEAN PLATELET VOLUME 12.6 fL (9.0-12.2); MONOCYTES # (AUTO) 1.3 10^3/uL (0.0-1.0); MONOCYTES % (AUTO) 9 % (0-12); NEUTROPHILS # (AUTO) 9.3 10^3/uL (1.8-7.8); NEUTROPHILS % (AUTO) 68 % (42-75); PLATELET COUNT 326 10^3/uL (130-400); WHITE BLOOD COUNT 13.8 10^3/uL (4.3-11.0)
[2022-06-14 09:00] VITALS: BP 116/58
[2022-06-14] MEDS: DOCUSATE SODIUM 100 MG (COLACE) CAP PO SCH (09:12)
[2022-06-14 13:15] VITALS: BP 123/73
--- NOTE | 2022-06-14 15:36 | Discharge Summary ---
Diagnosis/Chief Complaint Date of Admission Jun 13, 2022 at 06:05 Date of Discharge June 14, 2022 Admission Diagnosis Admission Diagnosis 1. IUP at 40w6d gestation Discharge Diagnosis 1. IUP at 40w6d gestation Chief Complaint/HPI Chief Complaint/HPI 26 yo G4 now T4 here presented in the am of 06/13 for induction of labor. Discharge Summary-OBS Procedures 1. 2. Repair of minor perineal tear Discharge Physical Examination Allergies: Coded Allergies: Penicillins (Verified Allergy, Intermediate, Swelling, 08/28/17) latex (Verified Allergy, Intermediate, RASH, 08/28/17) Vitals & I&Os Intake and Output 06/14/22 00:00 Intake Total 1550 ml Balance 1550 ml Vital Sign - Last 12Hours Date Time Temp Pulse Resp B/P (MAP) Pulse Ox O2 Delivery O2 Flow Rate FiO2 06/14/22 13:15 36.3 71 18 123/73 (90) 98 Room Air General Appearance: Alert, No Acute Distress Respiratory: Clear to Auscultation Cardiovascular: Regular Rate Abdominal: Soft (with uterus firm) Hospital Course Was the Problem List Reviewed?: Yes Her hg in the am of 06/14 was 10.6 compared to admission of 11.5 Labs Laboratory Tests 06/14/22 05:50: White Blood Count 13.8H, Red Blood Count 3.69L, Hemoglobin 10.6L, Hematocrit 32L , Mean Corpuscular Volume 87, Mean Corpuscular Hemoglobin 29, Mean Corpuscular H emoglobin Concent 33, Red Cell Distribution Width 14.4, Platelet Count 326, Mean Platelet Volume 12.6H, Immature Granulocyte % (Auto) 2, Neutrophils (%) (Auto) 68, Lymphocytes (%) (Auto) 20, Monocytes (%) (Auto) 9, Eosinophils (%) (Auto) 1, Basophils (%) (Auto) 0, Neutrophils # (Auto) 9.3H, Lymphocytes # (Auto) 2.8, Monocytes # (Auto) 1.3H, Eosinophils # (Auto) 0.2, Basophils # (Auto) 0.1, Immature Granulocyte # (Auto) 0.2H Discharge Instructions to patient/family Please see electronic discharge instructions given to patient. Discharge Medications Reviewed and agree with Discharge Medication list on patient's Discharge I nstruction sheet CHRISSIE HERNANDEZ MD Jun 14, 2022 15:36
[2022-06-14 17:10] VITALS: BP 129/66
[2022-06-14 17:30] VITALS: BP 129/66
== END 2022-06-14 17:30 | disposition home or self-care (01) | DRG 807 ==
LOC: LDRP 06:05
PROVIDERS: ADMIT Family Medicine; ATTEND Family Medicine
PROC: 10E0XZZ Delivery of Products of Conception, External Approach (ICD-10-PCS; principal; 2022-06-13)
PROC: 10907ZC Drainage of Amniotic Fluid, Therapeutic from Products of Conception, Via Natural or Artificial Opening (ICD-10-PCS; 2022-06-13)
PROC: 3E033VJ Introduction of Other Hormone into Peripheral Vein, Percutaneous Approach (ICD-10-PCS; 2022-06-13)
PROC: 0W8NXZZ Division of Female Perineum, External Approach (ICD-10-PCS; 2022-06-13)
DX: O48.0 Post-term pregnancy (principal); Z37.0 Single live birth; Z3A.40 40 weeks gestation of pregnancy; Z88.0 Allergy status to penicillin; Z91.040 Latex allergy status; O13.4 Gestational [pregnancy-induced] hypertension without significant proteinuria, complicating childbirth
CPT/HCPCS: 36415; 81000; 85025; 86850; 86900; 86901